=== PATIENT | male | born 1975 | race Caucasian/White ===

== ENCOUNTER 2021-06-29 16:38 | Observation (INO) ==
[2021-06-29] MEDS ORDERED: NALOXONE HCL 0.4 MG/1 ML VIAL/CARP ONE (16:58)
[2021-06-29] MEDS ORDERED: NALOXONE HCL 0.4 MG/1 ML VIAL/CARP IV STA ×3 (17:09→18:35)
[2021-06-29 17:20] LABS: Basophils # (auto) 0.01 K/uL (0-0.2); Basophils % (auto) 0.2 %; Eosinophils # (auto) 0.17 K/uL (0-0.5); Eosinophils % (auto) 4.2 %; Hematocrit (blood only) 47.1 % (42-52); Hemoglobin 15.8 g/dL (14.0-18.0); Immature Granulocytes # (auto) 0.05 K/uL (0.00-0.02); Immature Granulocytes % (auto) 1.2 %; Lymphocytes # (auto) 1.76 K/uL (1.2-3.4); Lymphocytes % (auto) 43.9 %; Mean Corpuscular Hemoglobin 29.6 pg (25-34); Mean Corpuscular Hgb Conc 33.5 g/dL (32-36); Mean Corpuscular Volume 88.4 fL (80-100); Mean Platelet Volume 9.1 fL (7.4-10.4); Monocytes # (auto) 0.08 K/uL (0.11-0.59); Neutrophils # (auto) 1.94 K/uL (1.4-6.5); Neutrophils % (auto) 48.5 %; Platelet Count 284 K/uL (130-400); RDW Coefficient of Variation 13.9 % (11.5-14.5); RDW Standard Deviation 45.2 fL (36.4-46.3); Red Blood Count 5.33 M/uL (4.7-6.1); White Blood Count 4.01 K/uL (4.8-10.8)
--- NOTE | 2021-06-29 17:23 | Emergency Department Note ---
History of Present Illness General Chief complaint: Overdose (Accidental) Stated complaint: OVERDOSE Time Seen by Provider: 06/29/21 16:51 Source: EMS Mode of arrival: EMS Limitations: altered mental status and clinical acuity History of Present Illness Provider complaint: Found cyanotic in the shower Onset (ago): hour(s) Location: head This is a 45-year-old male with a history of seizure disorder sent in from the [facility] for presumed overdose. The patient went to the [facility] yesterday to sign himself in for suicidal ideation. The patient a ppeared to be under the influence of drugs yesterday. He was admitted and at about 2:00 today he went to take a shower and when they checked on him they found him unresponsive and cyanotic and barely breathing. He did have a pulse. His pupils were pinpoint. They later found some pills in his belongings. They called 911 and he received 2.8 mg of Narcan intranasally without effect. An IO was placed in the left humerus and he was given 1.2 mg of Narcan IV. His breathing rate increased and they were less sonorous. A nasal trumpet was placed. No further history is obtainable. Home Medications Medication Instructions Recorded Confirmed Type albuterol sulfate 90 mcg/actuation INHALATION 06/29/21 History aerosol inhaler citalopram 40 mg tablet 40 mg PO DAILY 06/29/21 06/29/21 History clonazepam 0.5 mg tablet 0.5 mg PO DAILY 06/29/21 06/29/21 History gabapentin 300 mg capsule 300 mg PO TID 06/29/21 06/29/21 History mirtazapine 30 mg tablet 30 mg PO DAILY 06/29/21 06/29/21 History prazosin 2 mg capsule 2 mg PO DAILY 06/29/21 06/29/21 History Allergies Allergy/AdvReac Type Severity Reaction Status Date / Time doxepin Allergy Unknown Verified 06/16/09 02:56 haloperidol Allergy Unknown Verified 06/16/09 02:56 mushroom Allergy Unknown PORTABELLA Verified 01/12/08 15:54 trazodone Allergy Unknown Verified 06/16/09 02:56 Past Med/Surg History Medical History Seizure disorder Social History Smoking Status: Unknown if ever smoked Review of Systems See HPI for pertinent positives & negatives. Unobtainable due to reduced consciousness Physical Exam Vital Signs Vital Signs - 24 hr 06/29/21 17:07 06/29/21 17:23 06/29/21 17:58 Pulse Rate 80 67 Pulse Rate [Apical] 56 L Pulse Rhythm [Apical] Regular Pulse Strength [Apical] Normal Respiratory Rate 6 L 20 13 Respiratory Effort / Characteristics Non-Labored Respiratory Depth Shallow Shallow Respiratory Pattern Regular Blood Pressure 123/70 Blood Pressure [Left Arm] 99/75 L Blood Pressure Mean 87 Blood Pressure Mean [Left Arm] 83 Blood Pressure Position [Left Arm] Lying Pulse Oximetry 89 L 97 100 Oxygen Delivery Method Nasal Cannula Nasal Cannula Nasal Cannula Oxygen Flow Rate 0 4 6 Sepsis Recent Fever Within 48 Hours No Sepsis New/Unexplained Change in Mental Status No Sepsis Action Taken by Nursing No Action Required End Tidal CO2 (18-54mmHg) Oxygen Flow Rate - Titration 3 Pulse Oximetry Post Tiitration 99 06/29/21 18:05 06/29/21 19:30 06/29/21 19:32 Pulse Rate Pulse Rate [Apical] 58 L 52 L Pulse Rhythm [Apical] Regular Pulse Strength [Apical] Normal Respiratory Rate 14 12 Respiratory Effort / Characteristics Non-Labored Respiratory Depth Normal Respiratory Pattern Blood Pressure Blood Pressure [Left Arm] 115/70 128/85 Blood Pressure Mean Blood Pressure Mean [Left Arm] 85 99 Blood Pressure Position [Left Arm] Lying Lying Pulse Oximetry 100 98 Oxygen Delivery Method Nasal Cannula Nasal Cannula Oxygen Flow Rate 6 6 Sepsis Recent Fever Within 48 Hours Sepsis New/Unexplained Change in Mental Status Sepsis Action Taken by Nursing End Tidal CO2 (18-54mmHg) 36 Oxygen Flow Rate - Titration Pulse Oximetry Post Tiitration 06/29/21 19:48 06/29/21 20:04 06/29/21 20:19 Pulse Rate Pulse Rate [Apical] 49 L 54 L 52 L Pulse Rhythm [Apical] Regular Regular Regular Pulse Strength [Apical] Normal Normal Normal Respiratory Rate 12 12 12 Respiratory Effort / Characteristics Non-Labored Non-Labored Non-Labored Respiratory Depth Normal Normal Normal Respiratory Pattern Blood Pressure Blood Pressure [Left Arm] 128/85 119/82 119/82 Blood Pressure Mean Blood Pressure Mean [Left Arm] 99 94 94 Blood Pressure Position [Left Arm] Lying Lying Lying Pulse Oximetry 100 100 100 Oxygen Delivery Method Nasal Cannula Nasal Cannula Nasal Cannula Oxygen Flow Rate 6 6 6 Sepsis Recent Fever Within 48 Hours Sepsis New/Unexplained Change in Mental Status Sepsis Action Taken by Nursing End Tidal CO2 (18-54mmHg) 36 Oxygen Flow Rate - Titration Pulse Oximetry Post Tiitration The physical exam is limited due to the patient's condition. Constitutional: Vital signs reviewed. Eyes: Pupils are pinpoint bilaterally. There is bilateral conjunctival injection. HENT: Normocephalic atraumatic. Nasal trumpet is in the right naris. No pooling of secretions in the mouth. Respiratory: Clear to auscultation bilaterally. Breath sounds are equal bilaterally. Breathing only about 8 breaths/min. Cardiovascular: Regular rate and rhythm. No murmurs, rubs or gallops. GI: Soft, nondistended and nontender. Bowel sounds are present. Musculoskeletal: No peripheral edema. I/O line in the left humeral head. Integumentary: No cyanosis. Neurological: The patient is unresponsive. Psychiatric: Unable to assess. Course Administered Medications Discontinued Medications Naloxone HCl 1 mg/ Sodium (Chloride) 1,002.5 mls @ 0 mls/hr IV .Q0M STA Stop: 06/29/21 18:15 Last Admin: 06/29/21 18:42 Dose: Not Given Documented by: [id number] Naloxone HCl 1 mg/ Sodium (Chloride) 1,002.5 mls @ 0 mls/hr IV .Q0M STA Stop: 06/29/21 18:27 Last Admin: 06/29/21 18:42 Dose: Not Given Documented by: [id number] Naloxone HCl (Naloxone Hcl 0.4 Mg/1 Ml Vial/Carp) Confirm Administered Dose 0.4 mg .ROUTE .[facility] Stop: 06/29/21 16:59 Last Admin: 06/29/21 18:02 Dose: Not Given Documented by: [id number] Naloxone HCl (Naloxone Hcl 0.4 Mg/1 Ml Vial/Carp) 0.8 mg IV NOW STA Stop: 06/29/21 17:10 Last Admin: 06/29/21 17:09 Dose: 0.8 mg Documented by: [id number] Naloxone HCl (Naloxone Hcl 0.4 Mg/1 Ml Vial/Carp) 1 mg IV NOW STA Stop: 06/29/21 18:36 Last Admin: 06/29/21 18:28 Dose: 1 mg Documented by: [id number] Naloxone HCl (Naloxone Hcl 0.4 Mg/1 Ml Vial/Carp) 1 mg IV NOW STA Stop: 06/29/21 18:36 Last Admin: 06/29/21 18:13 Dose: 1 mg Documented by: [id number] Critical Care Time Critical Care Time: Yes Total Critical Care Time: 50 I have personally spent approximately 50 minutes of critical care time in the direct management of this patient. This includes bedside care, interpretation of diagnostic studies, and testing, discussion with consultants, patient, and family members, and other required patient management activities. These minutes are in excess of all separately billable procedures. Medical Decision Making Differential Diagnosis Illicit drug use, drug overdose, suicide attempt, mood disorder, opiate addicti on, respiratory failure Medical Records Attestation: I reviewed the patient's medical records. I did perform a limited focused review of portions of the patient's old chart on the electronic medical record. The patient has had no recent pertinent visits to this hospital. Home Medications Current Medication List: was personally reviewed by me Laboratory Data Attestation: I reviewed the patient's lab results. Result diagrams: 06/29/21 17:01 06/29/21 17:01 Lab Results 06/29/21 06/29/21 06/29/21 Range/Units 17:01 17:01 17:01 WBC 4.01 L (4.8-10.8) K/uL RBC 5.33 (4.7-6.1) M/uL Hgb 15.8 (14.0-18.0) g/dL Hct 47.1 (42-52) % MCV 88.4 (80-100) fL MCH 29.6 (25-34) pg MCHC 33.5 (32-36) g/dL RDW Std Deviation 45.2 (36.4-46.3) fL RDW Coeff of Yadi 13.9 (11.5-14.5) % Plt Count 284 (130-400) K/uL MPV 9.1 (7.4-10.4) fL Immature Gran % (Auto) 1.2 % Neut % (Auto) 48.5 % Lymph % (Auto) 43.9 % [place] % (Auto) 2.0 % Eos % (Auto) 4.2 % Baso % (Auto) 0.2 % Neut # (Auto) 1.94 (1.4-6.5) K/uL Lymph # (Auto) 1.76 (1.2-3.4) K/uL [place] # (Auto) 0.08 L (0.11-0.59) K/uL Eos # (Auto) 0.17 (0-0.5) K/uL Baso # (Auto) 0.01 (0-0.2) K/uL Immature Gran # (Auto) 0.05 H (0.00-0.02) K/uL ABG pH (7.35-7.45) ABG pCO2 (35-46) mmHg ABG pO2 (80-95) mmHg ABG HCO3 (19-24) mmol/L ABG O2 Saturation (90-95) % ABG Base Excess (-9-1.8) mEq/L Eriberto Test (Pos) Barometric Pressure mm/Hg Oxygen Given Sodium 136 (136-145) mmol/L Potassium 4.6 (3.5-5.1) mmol/L Chloride 100 (98-107) mmol/L Carbon Dioxide 27 (21-32) mmol/L Anion Gap 9 (3-11) BUN 22 (6-23) mg/dl Creatinine 1.03 (0.6-1.4) mg/dl Est Cr Clr Drug Dosing 91.0 ml/min Est GFR ( Amer) 101.9 ml/min Est GFR (Non-Af Amer) 87.9 ml/min BUN/Creatinine Ratio 21.4 H (10-20) Glucose 205 H (70-99(Fasting)) mg/dl Calcium 9.3 (8.5-10.1) mg/dl Total Bilirubin 0.5 (0.2-1.0) mg/dl AST 33 (13-39) U/L ALT 19 (7-52) U/L Alkaline Phosphatase 79 (34-104) U/L Troponin I 0.03 (0-0.04) ng/ml Total Protein 7.7 (6.0-8.3) gm/dl Albumin 4.7 (3.4-5.0) gm/dl Globulin 3.0 (2.5-4.0) gm/dl Albumin/Globulin Ratio 1.6 (0.9-2) Salicylates < 3.0 L (3.0-30) mg/dl Acetaminophen < 3 L (10-30) ug/ml Ethyl Alcohol mg/dL (<10.0) mg/dl SARS-CoV-2, RNA, NAAT (NEGATIVE) 06/29/21 06/29/21 06/29/21 Range/Units 17:01 18:46 18:55 WBC (4.8-10.8) K/uL RBC (4.7-6.1) M/uL Hgb (14.0-18.0) g/dL Hct (42-52) % MCV (80-100) fL MCH (25-34) pg MCHC (32-36) g/dL RDW Std Deviation (36.4-46.3) fL RDW Coeff of Yadi (11.5-14.5) % Plt Count (130-400) K/uL MPV (7.4-10.4) fL Immature Gran % (Auto) % Neut % (Auto) % Lymph % (Auto) % [place] % (Auto) % Eos % (Auto) % Baso % (Auto) % Neut # (Auto) (1.4-6.5) K/uL Lymph # (Auto) (1.2-3.4) K/uL [place] # (Auto) (0.11-0.59) K/uL Eos # (Auto) (0-0.5) K/uL Baso # (Auto) (0-0.2) K/uL Immature Gran # (Auto) (0.00-0.02) K/uL ABG pH 7.34 L (7.35-7.45) ABG pCO2 55 H (35-46) mmHg ABG pO2 178 H (80-95) mmHg ABG HCO3 28 H (19-24) mmol/L ABG O2 Saturation 99.3 H (90-95) % ABG Base Excess 1.3 (-9-1.8) mEq/L Eriberto Test Pos (Pos) Barometric Pressure 733.4 mm/Hg Oxygen Given 6L Sodium (136-145) mmol/L Potassium (3.5-5.1) mmol/L Chloride (98-107) mmol/L Carbon Dioxide (21-32) mmol/L Anion Gap (3-11) BUN (6-23) mg/dl Creatinine (0.6-1.4) mg/dl Est Cr Clr Drug Dosing ml/min Est GFR ( Amer) ml/min Est GFR (Non-Af Amer) ml/min BUN/Creatinine Ratio (10-20) Glucose (70-99(Fasting)) mg/dl Calcium (8.5-10.1) mg/dl Total Bilirubin (0.2-1.0) mg/dl AST (13-39) U/L ALT (7-52) U/L Alkaline Phosphatase (34-104) U/L Troponin I (0-0.04) ng/ml Total Protein (6.0-8.3) gm/dl Albumin (3.4-5.0) gm/dl Globulin (2.5-4.0) gm/dl Albumin/Globulin Ratio (0.9-2) Salicylates (3.0-30) mg/dl Acetaminophen (10-30) ug/ml Ethyl Alcohol mg/dL < 10.0 (<10.0) mg/dl SARS-CoV-2, RNA, NAAT NEGATIVE (NEGATIVE) Imaging Data Radiologist's Impression: Chest X-Ray 06/29/21 17:09 XR chest 1V portable HISTORY: 45 years-old Male bradypnea acute shortness of breath COMPARISON: None TECHNIQUE: Portable AP view of the chest FINDINGS: Cardiomediastinal and hilar silhouettes are within normal limits. No pneumothorax, pleural effusion, airspace consolidation or overt pulmonary edema. Bones of the chest appear grossly intact. Partially imaged surgical anchor projects over the proximal left humerus. IMPRESSION: No acute process. ACT 112: Negative or not required by law. The above report was generated using voice recognition software. It may contain grammatical, syntax or spelling errors. Electronically signed by: Alton Kaminski M.D. 06/29/2021 5:[address] 06/29/21 17:10 CT head/brain wo con CLINICAL HISTORY: 45 years-old Male with AMS. Acutely altered mental status TECHNIQUE: Multiple axial CT images of the head were obtained without contrast. A dose lowering technique was utilized adhering to the principles of ALARA. CT DOSE: 1311.06 mGy.cm COMPARISON: Head CT 05/28/2008, 01/11/2008 FINDINGS: No acute intracranial hemorrhage, midline shift, intracranial mass, territorial ischemia or abnormal extra-axial collection. There is persistent dilation lateral ventricles measuring up to 4.1 cm transversely, stable back to at least 2007. Study is mildly motion degraded. The calvarium is intact. Mild mucosal thickening of the ethmoid air cells and frontal sinuses and mastoid air cells are clear. Unremarkable soft tissues and orbits. IMPRESSION: 1. No acute intracranial abnormality. 2. Unchanged ventricular prominence is stable dating back to at least 2007. ACT 112: Negative or not required by law. The above report was generated using voice recognition software. It may contain grammatical, syntax or spelling errors. Electronically signed by: Alton Kaminski M.D. 06/29/2021 5:59 PM MDM Narrative I did evaluate the patient as noted above. The patient was sent over from the [facility] for presumed opiate overdose. He did receive 2 mg of Narcan prior to arrival. He does have pinpoint pupils here. He is only bringing about 6 to 8 breaths/min with an O2 sat of 89% on room air. He was placed on supplemental oxygen. He was placed on an end-tidal CO2 monitor. He was placed on one-to-one suicide watch. IV access was established. I did treat him with 0.8 mg of Narcan IV. The patient woke up. He started talking but was unintelligible. His respiratory rate came up to 16. I did place an order for continuous cardiac monitoring. The monitor showed normal sinus rhythm at a rate of 80 bpm. I did order and personally review the patient's 12-lead EKG as described above. I did order and personally reviewed the images of the patient's chest x-ray as described above. There is no evidence of acute process. I did order a urine analysis. I did order and review the patient's blood work as noted in the electronic medical record. ABG shows a pH of 7.27. PaCO2 is 59 and PaO2 is 87. CBC shows a white count of 4. He is not anemic or thrombocytopenic. Electrolytes and LFTs are unremarkable. Troponin is negative. Tox screen for salicylates, alcohol and acetaminophen are negative. I did order a CT of the head. I did review the images myself as well as the radiology report as described above. There is no evidence of acute intracranial abnormality. The [facility] called and they were able to identify the pills of his Klonopin 1 mg tablets. There were 25 and bottle. The patient developed bradypnea again with a respiratory rate down to 10 and so he was given 1 mg of Narcan IV. He did open his eyes and his respiratory rate went up to 16. He still is unable to answer questions other than saying that he is cold. He was given warm blankets. On reassessment the patient was again rather somnolent. He was given another 1 mg of Narcan IV. The patient was able to wake up enough to say he wanted to leave but not much more than that. He is still rather confused and falls right back asleep. Repeat ABG shows a pH of 7.34. A PaCO2 of 55 and a PaO2 of 178. His oxygen was titrated down. I did discuss the case with the hospitalist and director of casework services. The ICU was consulted and he was admitted to the ICU. Impression & Plan Acute respiratory failure, Drug overdose, Leukopenia Discharge Plan Visit Data Chief Complaint: Overdose (Accidental) Stated Complaint: OVERDOSE ED Provider: Akbar Hong Discharge Problem: Acute respiratory failure, Drug overdose, Leukopenia Patient Disposition: Admitted As Inpatient Forms Stand Alone Forms: My [facility] Prescriptions Prescriptions: No Action citalopram 40 mg tablet 40 mg PO DAILY RF: 0 clonazepam 0.5 mg tablet 0.5 mg PO DAILY RF: 0 mirtazapine 30 mg tablet 30 mg PO DAILY RF: 0 gabapentin 300 mg capsule 300 mg PO TID RF: 0 albuterol sulfate 90 mcg/actuation HFA aerosol inhaler INHALATION RF: 0 prazosin 2 mg capsule 2 mg PO DAILY RF: 0 Referrals Referrals: Belinda Cervantes [Primary Care Provider] -
[2021-06-29 17:36] LABS: Albumin Globulin Ratio 1.6 (0.9-2); Albumin Level 4.7 gm/dl (3.4-5.0); BUN Creatinine Ratio 21.4 (10-20); Bilirubin,Total 0.5 mg/dl (0.2-1.0); Calcium 9.3 mg/dl (8.5-10.1); Est GFR (African American) 101.9 ml/min; Est GFR (Non-African American) 87.9 ml/min; Potassium 4.6 mmol/L (3.5-5.1); Total Protein 7.7 gm/dl (6.0-8.3)
[2021-06-29 17:37] LABS: Troponin I 0.03 ng/ml (0-0.04)
[2021-06-29 17:39] LABS: Acetaminophen < 3 ug/ml (10-30); Salicylate < 3.0 mg/dl (3.0-30)
--- NOTE | 2021-06-29 18:00 | CT Scan Report ---
CT head/brain wo con CLINICAL HISTORY: 45 years-old Male with AMS. Acutely altered mental status TECHNIQUE: Multiple axial CT images of the head were obtained without contrast. A dose lowering tech nique was utilized adhering to the principles of ALARA. CT DOSE: 1311.06 mGy.cm COMPARISON: Head CT 05/28/2008, 01/11/2008 FINDINGS: No acute intracranial hemorrhage, midline shift, intracranial mass, territorial ischemia or abnormal extra-axial collection. There is persistent dilation lateral ventricles measuring up to 4.1 cm transv ersely, stable back to at least 2007. Study is mildly motion degraded. The calvarium is intact. Mild mucosal thickening of the ethmoid air cells and frontal sinuses and ma stoid air cells are clear. Unremarkable soft tissues and orbits. IMPRESSION: 1. No acute intracranial abnormality. 2. Unchanged ventricular prominence is stable dating back to at least 2007. ACT 112: Negative or not required by law. The above report was generated using voice recognition software. It may contain grammatical, syntax o r spelling errors. Electronically signed by: Alton Kaminski M.D. 06/29/2021 5:59 PM
[2021-06-29] MEDS ORDERED: NALOXONE HCL 1 MG in SODIUM CHLORIDE 0.9% 1000ML 1,000 ML IV STA ×2 (18:14→18:26)
[2021-06-29 19:04] LABS: Base Excess ABG 1.3 mEq/L (-9-1.8); HCO3 ABG 28 mmol/L (19-24); Oxygen Saturation ABG 99.3 % (90-95); PCO2 ABG 55 mmHg (35-46); PO2 ABG 178 mmHg (80-95); pH ABG 7.34 (7.35-7.45)
[2021-06-29 19:06] LABS: Allen Test Pos (Pos)
--- NOTE | 2021-06-29 19:44 | History & Physical Report ---
Date of Service June 29, 2021 Assessment & Plan (1) Drug overdose: (2) Acute respiratory failure: Plan: Patient is 45 y/o M with PMH seizure disorder, h/o TBI, asthma, depression presented to ER from the [facility] for reported unresponsive episode. It is reported patient self checked in yesterday for suicidal ideations and was noted to have episodes of "nodding off" throughout the day. Today around 15:00 found in shower cyanotic, unresponsive and with reported pinpoint pupils. It isreported that patient was given 2.8mg narcan intranasally as well as 1.2mg though IO prior to hospital arrival. Pills were found in a bag of patient's possession. Upon ER arrival it is reported patient was had respirations of 6 to 8 breaths/min and O2 sat of 89% on room air, was given 0.8 mg of Narcan and reportedly woke up and was talking but was intelligible and had improvement of his respirations up to 16. Is reported patient had bradypnea again and was given additional Narcan with reporting becoming more responsive and opening his eyes to questioning. CT head no acute findings. CXR: no acute findings ABG: pH: 7.34, pCO2: 55, pO2: 178, HCO3: 28, was obtained on 6L oxygen. Negative ETOH, acetaminophen, salicylate levels Rx meds filled at [facility] on 06/20/2021 citalopram 40 mg quantity 30, clonazepam 0.5 mg quantity 30, gabapentin 300 mg quantity 90, mirtazapine 30 mg quantity 30, prazosin 2 mg quantity 30 Suspect overdose, possible opioid and benzo. Less likely seizure and postictal state Currently pt arousable Monitor in ICU Obtain urine drug screen Seizure precautions Suicide precautions (3) Seizure disorder: Plan: Reported history seizure disorder and reported last seizure in 2019 Lower suspicion for acute seizure and postictal status however if would pt would no improve in status from above or declines, pt will require transfer for continuous EMG monitoring (4) Depression: Plan: Pharmacy record review patient is to be on citalopram, clonazepam (5) Asthma: Plan: Albuterol prn Disposition ICU Follows with [facility] in [place] for routine care Pt was seen and care coordinated with Dr Gamboa. See addendum History of Present Illness Chief Complaint: unresponsive Primary Care Provider: Belinda Cervantes Patient is 45 y/o M with PMH seizure disorder, h/o TBI, asthma, depression presented to ER from the [facility] for reported unresponsive episode. History unobtainable from patient. It is reported patient self checked in yesterday for suicidal ideations. Reported thinks patient was "impaired" yesterday, however unable to further elaborate. Patient did not have a drug screen at the facility. Spoke to a nurse who was not immediately taking care of patient, however he did notice patient walking through [place] today and did notice him to seem to be nodding off a couple of times. Today patient was taking a shower and around 1500 was found on floor cyanotic, unresponsive and with reported pinpoint pupils. This nurse was unable to give me any further details about the event and reports no daytime staff available at this time. States that staff found pills in a bag and this nurse was unsure the number of pills in the bag and states the pills were not identified. Nurse reports that patient has been known to smuggle drugs in to other rehab facilities in past. No known seizure witnessed. Staff report patient stated last seizure was in 2019. ER provider reported that patient was given 2.8mg narcan intranasally as well as 1.2mg though IO prior to hospital arrival. Patient reported to [facility] staff that he was on albuterol, Celexa, prazosin, gabapentin, Klonopin, Remeron and did not give specific doses Upon review of recently Rx meds, filled at [facility] on 06/20/2021 citalopram 40 mg quantity 30, clonazepam 0.5 mg quantity 30, gabapentin 300 mg quantity 90, mirtazapine 30 mg quantity 30, prazosin 2 mg quantity 30 Upon ER arrival it is reported patient was had respirations of 6 to 8 breaths/min and O2 sat of 89% on room air, was given 0.8 mg of Narcan and reportedly woke up and was talking but was intelligible and had improvement of his respirations up to 16. Is reported patient had bradypnea again and was given additional Narcan with reporting becoming more responsive and opening his eyes to questioning. CT head no acute findings. unable to obtain further medical history, surgical history, social history, family history from patient at this time secondary to cognitive status Allergies Allergy/AdvReac Type Severity Reaction Status Date / Time doxepin Allergy Unknown Unknown Verified 06/29/21 21:14 haloperidol Allergy Unknown Unknown Verified 06/29/21 21:14 mushroom Allergy Unknown PORTABELLA Verified 01/12/08 15:54 trazodone Allergy Unknown Unknown Verified 06/29/21 21:14 Home Medications Medication Instructions Recorded Confirmed Type albuterol sulfate 90 mcg/actuation 2 puff INHALATION QID PRN 06/29/21 06/29/21 History aerosol inhaler citalopram 40 mg tablet 40 mg PO DAILY 06/29/21 06/29/21 History clonazepam 0.5 mg tablet 0.5 mg PO DAILY 06/29/21 06/29/21 History gabapentin 300 mg capsule 300 mg PO TID 06/29/21 06/29/21 History mirtazapine 30 mg tablet 30 mg PO DAILY 06/29/21 06/29/21 History prazosin 2 mg capsule 2 mg PO DAILY 06/29/21 06/29/21 History Past Med/Surg History Medical History Asthma Depression Seizure disorder Social History Smoking Status: Smoker, status unknown Hx Alcohol Use: No Preferred Language: Mauritanian Communication Ability: Impaired Box Stapler Required: No Beliefs That Will Affect Care: None Current Living Situation: Spouse Other Information That Helps Us Care for You: No Feels Safe at Home: Yes Review of Systems Review of Systems: Unobtainable due to cognitive status Physical Exam Physical Exam: General: no acute distress, WDWN Head: normocephalic, atraumatic Eyes: pupils approximately 2-3mm and reactive to light, uncooperative with EOM testing, conjunctiva non-injected, anicteric ENT: normal inspection external ears, nose, mucous membranes moist Neck: supple, trachea midline Lungs: no respiratory distress, respirations 12, +wheezing CV: RRR, no murmur, no pretibial edema Abd: normal BS, soft, non-tender Ext: no cyanosis, no noted calf tenderness Neuro: drowsy, arousable to voice and light touch, mumbles few words, able to follow simple commands then falls back asleep. Will not state what he took and mumbles something when asked Skin: warm, dry, multiple tattoos Results & Data Results & Data ([facility]) Vital Signs (Past 12 Hours) Vital Signs Pulse Pulse Resp BP BP Pulse Ox 06/29/21 19:30 52 L 12 128/85 98 06/29/21 18:05 58 L 14 115/70 100 06/29/21 17:58 56 L 13 99/75 L 100 06/29/21 17:23 67 20 97 06/29/21 17:07 80 6 L 123/70 89 L Laboratory Results Short CBC 06/29/21 Range/Units 17:01 WBC 4.01 L (4.8-10.8) K/uL Hgb 15.8 (14.0-18.0) g/dL Hct 47.1 (42-52) % Plt Count 284 (130-400) K/uL BMP 06/29/21 17:01 Sodium 136 Potassium 4.6 Chloride 100 Carbon Dioxide 27 BUN 22 Creatinine 1.03 Glucose 205 H Calcium 9.3 Cardiac Enzymes 06/29/21 Range/Units 17:01 Troponin I 0.03 (0-0.04) ng/ml Liver Function 06/29/21 Range/Units 17:01 Total Bilirubin 0.5 (0.2-1.0) mg/dl AST 33 (13-39) U/L ALT 19 (7-52) U/L Alkaline Phosphatase 79 (34-104) U/L Albumin 4.7 (3.4-5.0) gm/dl Diagnostic Findings Chest X-Ray 06/29/21 17:09 XR chest 1V portable HISTORY: 45 years-old Male bradypnea acute shortness of breath COMPARISON: None TECHNIQUE: Portable AP view of the chest FINDINGS: Cardiomediastinal and hilar silhouettes are within normal limits. No pneumothorax, pleural effusion, airspace consolidation or overt pulmonary edema. Bones of the chest appear grossly intact. Partially imaged surgical anchor projects over the proximal left humerus. IMPRESSION: No acute process. ACT 112: Negative or not required by law. The above report was generated using voice recognition software. It may contain grammatical, syntax or spelling errors. Electronically signed by: Alton Kaminski M.D. 06/29/2021 5:[address] 06/29/21 17:10 CT head/brain wo con CLINICAL HISTORY: 45 years-old Male with AMS. Acutely altered mental status TECHNIQUE: Multiple axial CT images of the head were obtained without contrast. A dose lowering technique was utilized adhering to the principles of ALARA. CT DOSE: 1311.06 mGy.cm COMPARISON: Head CT 05/28/2008, 01/11/2008 FINDINGS: No acute intracranial hemorrhage, midline shift, intracranial mass, territorial ischemia or abnormal extra-axial collection. There is persistent dilation lateral ventricles measuring up to 4.1 cm transversely, stable back to at least 2007. Study is mildly motion degraded. The calvarium is intact. Mild mucosal thickening of the ethmoid air cells and frontal sinuses and mastoid air cells are clear. Unremarkable soft tissues and orbits. IMPRESSION: 1. No acute intracranial abnormality. 2. Unchanged ventricular prominence is stable dating back to at least 2007. ACT 112: Negative or not required by law. The above report was generated using voice recognition software. It may contain grammatical, syntax or spelling errors. Electronically signed by: Alton Kaminski M.D. 06/29/2021 5:59 PM Supervising Physician Co-Signing Physician Notes Patient is a 45 year old male with history of TBI, seizure disorder, depression, asthma who who presented to the ED from [facility] for reported unresponsive episode. Patient checked in for suicidal ideation and was later found in the bathroom cyanotic and unresponsive with pinpoint pupil. He was given narcan 2.8 mg intranasal + 1.2 mg through IO prior to ED arrival. In the ED, he had bradypnea 6-8/min with saturation of 89% on room air and was given multiple dose of narcan with improvement of his bradypnea and mental status. During my encounter, vitals were stable. Patient was sleeping but arousable to verbal stimuli. He would briefly answer simple questions and would go back to sleep. History unattainable from patient. Per report, the facility staff found klonopin bottle. Labs unremarkable. Urine toxicology screen positive for amphetamine, ecstasy, benzo and marijuana. Being admitted to ICU for closer monitoring. Might need intubation for airway protection if decompensates but currently stable. Supportive care for now. NPO status until mental status improves. Psych evaluation. I personally reviewed the record. I interviewed and examined the patient at bedside. Patient's care is coordinated with Shaina Steel PA-C . Please refer to the documentation above for details of patient's presentation and for discussion of other issues. (1) Acute respiratory failure Respiratory failure complication: hypoxia and hypercapnia Qualified Code(s): J96.01 - Acute respiratory failure with hypoxia; J96.02 - Acute respiratory failure with hypercapnia (2) Drug overdose Encounter type: initial encounter Injury intent: undetermined intent Qualified Code(s): T50.904A - Poisoning by unspecified drugs, medicaments and biological substances, undetermined, initial encounter
[2021-06-29] MEDS ORDERED: ICU PROTOCOL FOR HYPERGLYCEMIA PRN ×2 (21:49→21:57)
[2021-06-29] MEDS ORDERED: NALOXONE HCL 0.4 MG/1 ML VIAL/CARP IV PRN ×2 (22:03→23:02)
[2021-06-29] MEDS ORDERED: ALBUTEROL HFA 8 GM INHALER INH PRN (22:06)
--- NOTE | 2021-06-29 22:08 | Critical Care Consultation ---
Date of Consultation June 29, 2021 Assessment & Plan (1) Admitted to intensive care unit: Reason Critically Ill: 45-year-old male presenting in acute hypoxic respiratory failure in the setting of substance overdose requiring close airway monitoring as well as likely need for chemical intervention for suspected overdose with responsiveness to Narcan. NEURO - * Unresponsive: * Patient found down in the shower. He had pinpoint pupils and was cyanotic. He was hypoxic initially. Has responded escalating doses of Narcan. * On assessment, he is saturating well on 6 L, however this was easily titrated down. His ABG shows adequate oxygenation. * CT head found to be unremarkable without acute signs of trauma. * When patient is awoken, he does provide more history. * Likely all secondary from substance overdose. * Of note, the patient did become increasingly somnolent and with bradypnea shortly after arrival in the ICU. Patient received 0.4 mg of IV Narcan. Patient had near immediate response. After administration of Narcan, the patient was awake, alert, and oriented. He was able to provide historical information. He states that he did present to the [facility] as he was having suicidal ideation secondary to multiple stressors in his life including his relationship with his . He states that he used "street dope" as well as his prescribed Klonopin in an attempt to overdose. He does report that he took these medications in an attempt to end his life. He does become increasingly tearful and is concerned that he will be arrested secondary to street drug use. He reports that he did have a prior history of intravenous drug abuse with his last active use approximately 6 months ago. After receiving Narcan, the patient was able to provide urine sample and actually able to stand at bedside and use urinal as he had refused catheterization. Throughout conversation, the patient did notably become increasingly somnolent. At this point, decision was made to place patient on Narcan drip. I am concerned with providing increasing spot doses of Narcan in the setting of his seizure disorder with risk of inducing possible breakthrough seizure activity. Certainly, this is likely polysubstance overdose particularly in a patient with access to benzodiazepines. At this point, the patient is oxygenating well on 2 L nasal cannula. Patient does awaken easily and is able to continue to answer questions. We will continue with Narcan drip currently. * Suicide attempt: * Patient made a one-to-one with suicide precautions in place. * Did reach out to [facility] [address] and make them aware of the patient in the event that he continues to clear throughout the night. * Patient will likely require inpatient hospitalization given his active suicidal ideation with attempt. * Given the patient's admission of suicide attempt while lucid, will fill out 302 paperwork and file in patient's chart. Plan for psych consult when more appropriate. CARDIAC/VASCULAR - * No history of cardiac disease. * While patient was lucid, he is adamant that he did not overdose on his psychiatric medications. His QTC has been appropriate. * EKG: Normal sinus rhythm at [address] or T wave changes noted. QTc 461 ms. * Will repeat EKG later night for monitoring. * Monitor on telemetry. RESPIRATORY - * Respiratory failure: * Likely secondary to respiratory depressant drug overdose. * Has responded to Narcan. * Continue with supplemental oxygen as needed. * Chest x-ray without acute findings. Patient endorses no vomiting with today's events. * Patient has significant wheezing on exam. Reports history of asthma as well as cigarette smoking. * Albuterol inhaler as needed. GI/NUTRITION - * Will make n.p.o. pending improvement in mental status. RENAL/LYTES - * No significant electrolyte derangements * IVF: NSS@100 mL/hr - * Patient was able to void on his own. * Straight cath if needed. ENDO - * No h/o DM or thyroid Dz * BSGs per unit protocol. ISS --> gtt per unit policy. HEME - * Stable H&H ID - * No concerns for infectious contribution at this time. LINES/IV ACCESS - * PIVs x1 * RIGHT Forearm Endurance Catheter * LEFT Humeral IO - Removed DVT PROPHYLAXIS - * SCDs I have personally spent 55 minutes of critical care time in the direct management of this patient. This is a life/limb threatening event. This includes time spent evaluating patient, direct bedside care, chart review, placing orders, interpretation of diagnostic studies, discussion with consultants, patient, and family members, as well as other required patient management activities. This time is exclusive of all separately billable procedures, and teaching time and separate from and in addition to any other critical care service time. Thank you for allowing us to participate in the care of this patient. Please refer to my attending physician's documentation for any further recommendations. (2) Drug overdose: (3) Acute respiratory failure: (4) Suicidal ideation: (5) Depression: (6) Asthma: (7) Seizure disorder: Supervising Physician Co-Signing Physician Notes Patient seen and examined. EMR reviewed. Discussed with critical care AVERY. Agree with assessment plan as noted. Please refer to my progress note from for additional details History of Present Illness Attending Physician: Tim Gamboa MD History of Present Illness Patient is a 45-year-old male with a significant past medical history of depression, anxiety, TBI, seizure disorder, and asthma. Per conversation with colleagues and documentation review, the patient admitted himself to the [facility] yesterday with suicidal ideation. Per reports, the patient was noted to be "impaired" yesterday. Today while taking a shower, the patient was checked on by staff and found unresponsive. Patient was noted to be cyanotic and with pinpoint pupils. The patient was administered aggressive doses of Narcan with modest improvement. Upon EMS arrival, LEFT humeral head IO was placed and patient received an additional dose of Narcan. Upon arrival to the emergency department, the patient was somnolent with saturations of 89% on room air. He was given additional dose of Narcan with modest improvement of mental status and respiratory rate as well as oxygenation. CT of the head was obtained which demonstrated no acute findings. Patient had shown improvement with each subsequent doses of Narcan. Patient is currently prescribed albuterol, citalopram, clonazepam, gabapentin, mirtazapine, and prazosin. Apparently, the patient was also found with a baggy of unlabeled medications while in the shower. Upon evaluation in the emergency department, the patient is somnolent. He will awaken with noxious stimuli. He does become somewhat agitated when awoken. He does not provide great historical information otherwise. He does complain of some pain to the LEFT shoulder at the site of the IO. Otherwise, he offers no complaints of pain. Allergies Allergy/AdvReac Type Severity Reaction Status Date / Time doxepin Allergy Unknown Unknown Verified 06/29/21 21:14 haloperidol Allergy Unknown Unknown Verified 06/29/21 21:14 mushroom Allergy Unknown PORTABELLA Verified 01/12/08 15:54 trazodone Allergy Unknown Unknown Verified 06/29/21 21:14 Home Medications Medication Instructions Recorded Confirmed Type albuterol sulfate 90 mcg/actuation 2 puff INHALATION QID PRN 06/29/21 06/29/21 History aerosol inhaler citalopram 40 mg tablet 40 mg PO DAILY 06/29/21 06/29/21 History clonazepam 0.5 mg tablet 0.5 mg PO DAILY 06/29/21 06/29/21 History gabapentin 300 mg capsule 300 mg PO TID 06/29/21 06/29/21 History mirtazapine 30 mg tablet 30 mg PO DAILY 06/29/21 06/29/21 History prazosin 2 mg capsule 2 mg PO DAILY 06/29/21 06/29/21 History Patient History Medical History Asthma Depression Seizure disorder Social History Smoking Status: Smoker, status unknown Hx Alcohol Use: No Preferred Language: [place] Communication Ability: Impaired Elevator Repairer Required: No Beliefs That Will Affect Care: None Current Living Situation: Spouse Other Information That Helps Us Care for You: No Feels Safe at Home: Yes Review of Systems Review of Systems: Unobtainable due to cognitive status Physical Exam Physical Exam: VITAL SIGNS - Vital signs and nursing notes were reviewed. GENERAL - 45-year-old male appearing his stated age who is somnolent. Arousable to noxious stimuli. HEAD - Normocephalic, Atraumatic. No Gross's Sign or Raccoon's Eyes. EYES - Pupils small and equal bilaterally. EARS - No deformities of external structures noted on gross examination bilaterally. NOSE - Midline and without cyanosis. No epistaxis or purulent drainage noted. MOUTH/OROPHARYNX - Without perioral cyanosis. Buccal mucosa pink and dry. Dentures in place. NECK - Neck with FROM. Supple to palpation. No lymphadenopathy noted. No nuchal rigidity. LUNGS - Chest wall symmetric without accessory muscle use, intercostals retractions, or central cyanosis. Normal vesicular breath sounds CTA B/L. Diffuse wheezes noted throughout. CARDIAC - RRR with S1/S2. No murmur, rubs, or gallops appreciated. ABDOMEN - Abdominal contour flat without pulsations or visible masses. BS normoactive all four quadrants. No tenderness, palpable masses, hepatosplenomegaly, or ascites noted. EXTREMITIES - No pretibial edema present. +3/5 radial and dorsalis pedis pulses palpated throughout. +5/5 strength noted in UE/LE bilaterally. NEUROLOGIC - Cranial nerves II through XII grossly intact. Somnolent but arouses to noxious stimuli. PSYCH - Unable to obtain detailed psychiatric assessment secondary to level of sedation. Results & Data Results & Data ([facility]) Vital Signs (Past 12 Hours) Vital Signs Pulse Pulse Resp BP BP Pulse Ox 06/29/21 21:20 54 L 12 116/71 94 06/29/21 21:10 58 L 14 116/71 97 06/29/21 20:53 52 L 10 L 105/82 99 06/29/21 20:19 52 L 12 119/82 100 06/29/21 20:04 54 L 12 119/82 100 06/29/21 19:48 49 L 12 128/85 100 06/29/21 19:30 52 L 12 128/85 98 06/29/21 18:05 58 L 14 115/70 100 06/29/21 17:58 56 L 13 99/75 L 100 06/29/21 17:23 67 20 97 06/29/21 17:07 80 6 L 123/70 89 L Coding Level of Care Code Critical Care 1st 30-74 mins Diagnoses Admitted to intensive care unit Z78.9 Drug overdose T50.904A Encounter type: initial encounter Injury intent: undetermined intent Acute respiratory failure J96.01; J96.02 Respiratory failure complication: hypoxia and hypercapnia Suicidal ideation R45.851 Depression F32.A Asthma J45.909 Seizure disorder G40.909 Time Spent (min) 55 (1) Acute respiratory failure Respiratory failure complication: hypoxia and hypercapnia Qualified Code(s): J96.01 - Acute respiratory failure with hypoxia; J96.02 - Acute respiratory failure with hypercapnia (2) Drug overdose Encounter type: initial encounter Injury intent: undetermined intent Qualified Code(s): T50.904A - Poisoning by unspecified drugs, medicaments and biological substances, undetermined, initial encounter
[2021-06-29] MEDS: SODIUM CHLORIDE 0.9% 1000ML 1,000 ML IV SCH (22:57)
[2021-06-29 23:26] LABS: Appearance Urine Clear (Clear); Bacteria Urine Automated Negative (Negative); Bilirubin Urine Negative (Negative); Blood Urine Negative (Negative); Color Urine Yellow; Epithelial Cell Urine Auto >30 /lpf (0-5); Glucose Urine UA 2+ (Negative); Ketones Urine Negative (Negative); Leukocyte Esterase Urine Negative (Negative); Nitrite Urine Negative (Negative); Protein Urine 1+ (Negative); RBC Urine Automated 0-4 /hpf (0-4); Specific Gravity Urine 1.021 (1.000-1.030); Urobilinogen Urine Negative (Negative); pH Urine 5.5 (4.5-7.5)
[2021-06-29] MEDS ORDERED: NALOXONE HCL 5 MG in 0.9 % SODIUM CHLORIDE 87.5 ML IV SCH (23:30)
[2021-06-29] MEDS ORDERED: STAT IV Infusion **Titration per Protocol STA (23:30)
[2021-06-29] MEDS ORDERED: NALOXONE HCL 0.4 MG/1 ML VIAL/CARP IV ONE (23:45)
[2021-06-29 23:51] LABS: Cast Urine Automated 0 /lpf (0-5); Mucus Urine Present (None Prsent); Sperm Urine Present (None Prsent)
[2021-06-29 23:52] LABS: Amphetamines+Metham, Urine Pos (Neg); Barbiturates, Urine Neg (Neg); Benzodiazepine, Urine Pos (Neg); Cocaine, Urine Neg (Neg); MDMA (Ecstacy), Urine Pos (Neg); Methadone, Urine Neg (Neg); Opiate, Urine Neg (Neg); Phencyclidine, Urine Neg (Neg)
--- NOTE | 2021-06-30 00:37 | Procedure Note ---
Procedure Note Date of Service June 30, 2021 Note Procedure: Area Operations Manager Indwelling Peripherally Inserted IV Catheter Placement Attending: Dr. Culp APC: Baldemar Norman PA-C Indication: Need for IV Access, Poor Vascular Access Anesthesia: None Verbal consent was obtained from patient prior to performing the procedure. A time-out was completed verifying correct patient, procedure, site, positioning, and implant(s) or special equipment if applicable. Utilizing bedside ultrasound, vascularity of the RIGHT upper extremity was assessed. Vessel size was noted for appropriate catheter selection and skin was marked with gentle pressure. Patients RIGHT upper extremity was prepped and draped in the usual sterile fashion utilizing chlorhexidine. Ultrasound guidance was used to aid needle placement. A 22 g Endurance Catheter was introduced into the RIGHT forearm vein under direct ultrasound guidance. Guide wire was easily deployed without resistance. Catheter was threaded over the guide wire without resistance and the entire apparatus was removed intact. Good venous blood return was noted in the catheter. The IV catheter was easily flushed with sterile saline flush. Sterile clave was attached to the end of the catheter and good blood return was again noted. Tourniquet was released. StatLock device and sterile dressing were applied. The patient tolerated the procedure well. Blood Loss: Minimal Complications: None Procedural Ultrasound Guidance: Procedure Date: 06/30/2021 Indication: Poor Vascular Access Attending: Dr. Culp APC: Baldemar Norman PA-C Artery/Veins Identified: YES Access confirmed in Vein with ultrasound: YES Complications: NONE Patient tolerated procedure: WELL Coding CPT Codes Tubes, Drains, and Vasc Access - Tubes, Drains, and Vasc Access: [id number] Venipuncture, Age 4/>Req phys skill, (sep proc), Dx/Tx (not rtn) ([id number]) [facility] Procedure Codes (Charges) Tubes, Drains, and Vasc Access Procedure 1: Tubes, Drains, and Vasc Access: [id number] Venipuncture, Age 4/>Req phys skill, (sep proc), Dx/Tx (not rtn)
[2021-06-30 05:25] LABS: Basophils # (auto) 0.01 K/uL (0-0.2); Basophils % (auto) 0.1 %; Eosinophils # (auto) 0.25 K/uL (0-0.5); Eosinophils % (auto) 3.2 %; Hematocrit (blood only) 39.9 % (42-52); Hemoglobin 13.2 g/dL (14.0-18.0); Immature Granulocytes # (auto) 0.03 K/uL (0.00-0.02); Immature Granulocytes % (auto) 0.4 %; Lymphocytes # (auto) 2.49 K/uL (1.2-3.4); Lymphocytes % (auto) 32.1 %; Mean Corpuscular Hemoglobin 29.4 pg (25-34); Mean Corpuscular Hgb Conc 33.1 g/dL (32-36); Mean Corpuscular Volume 88.9 fL (80-100); Mean Platelet Volume 8.9 fL (7.4-10.4); Monocytes # (auto) 0.44 K/uL (0.11-0.59); Monocytes % (auto) 5.7 %; Neutrophils # (auto) 4.54 K/uL (1.4-6.5); Neutrophils % (auto) 58.5 %; Platelet Count 254 K/uL (130-400); RDW Coefficient of Variation 14.1 % (11.5-14.5); RDW Standard Deviation 46.5 fL (36.4-46.3); Red Blood Count 4.49 M/uL (4.7-6.1); White Blood Count 7.76 K/uL (4.8-10.8)
[2021-06-30 05:51] LABS: BUN Creatinine Ratio 30.5 (10-20); Calcium 8.2 mg/dl (8.5-10.1); Creatinine Clr Calc Pharmacy 159.8 ml/min; Est GFR (African American) 142.7 ml/min; Est GFR (Non-African American) 123.1 ml/min; Phosphorus 3.2 mg/dl (2.5-4.9); Potassium 3.8 mmol/L (3.5-5.1)
--- NOTE | 2021-06-30 08:11 | Critical Care Progress Note ---
Date of Service June 30, 2021 Assessment & Plan (1) Admitted to intensive care unit: Plan: Impression: 45-year-old male admitted with suicidal ideation and overdose requiring continuous Narcan infusion. Recommendations: 1. Overdose: Continue supportive management. QTc acceptable. We will try and wean Narcan to off. Decrease to 0.2 mg now and if does okay over the next 2 hours, can discontinue the drip. Once he is off the drip, he can transfer out of the intensive care unit. 2. Asthma: Some wheezing this morning. Will provide DuoNeb treatment. Start Flovent in conjunction with albuterol. Smoking cessation recommended. 3. Hypercarbia: Secondary to respiratory depressant effect of intentional overdose. Continue supportive management. No indication for noninvasive positive pressure ventilation currently. 4. Increase activity and advance diet as tolerated. As the patient is going to be ambulatory, do not think DVT prophylaxis is needed currently. No indication for GI prophylaxis. Once the patient's Narcan drip is discontinued, he can transfer out of the ICU and back to the hospitalist service. Plan was discussed with the patient as well as with ICU nurse at bedside. Questions were answered to the best of my ability. They expressed understanding and are in agreement with plan as outlined (2) Suicidal ideation: (3) Asthma: (4) Seizure disorder: (5) Drug overdose: Admission and Anticipated Discharge Date Admission Date: June 29, 2021 Subjective Patient seen and examined. EMR reviewed. Discussed with critical care AVERY. Review of Systems Review of Systems: All systems reviewed & are unremarkable except as noted in Subjective Physical Exam Constitutional: WD/WN, vitals as above Neck: trachea midline, no thyromegaly Respiratory: normal respiratory effort; no respiratory distress, no labored breathing and not tachypneic Auscultation: + wheezes; no crackles Cardiovascular: RRR, no murmur, no edema Gastrointestinal (Abdomen): normal bowel sounds, soft, nontender, no hepatosplenomegaly Musculoskeletal: Extremities: extremities normal to inspection Skin: no rashes, warm and dry Neurologic: Nonfocal exam Lymphatic: no cervical lymphadenopathy Results & Data Results & Data ([facility]) Vital Signs (Past 12 Hours) Vital Signs Temp Pulse Pulse Resp BP BP Pulse Ox 06/30/21 07:30 56 L 13 114/79 97 06/30/21 07:00 64 13 128/79 97 06/30/21 05:30 56 L 10 L 118/80 99 06/30/21 05:00 60 9 L 132/89 99 06/30/21 04:30 37 C 60 11 L 104/85 100 06/30/21 04:00 63 12 120/80 98 06/30/21 03:30 58 L 10 L 132/86 100 06/30/21 03:00 51 L 6 L 120/86 99 06/30/21 02:30 52 L 12 126/90 100 06/30/21 02:00 56 L 12 133/88 99 06/30/21 01:30 65 12 131/85 98 06/30/21 01:00 60 11 L 130/85 99 06/30/21 00:30 50 L 10 L 109/79 100 06/30/21 00:16 51 L 06/30/21 00:15 51 L 8 L 99 06/30/21 00:00 36.7 C 50 L 27 H 112/76 96 06/29/21 23:50 53 L 12 96 06/29/21 23:40 52 L 9 L 99 06/29/21 23:30 47 L 8 L 120/85 95 06/29/21 23:20 52 L 10 L 99 06/29/21 23:10 64 3 L 100 06/29/21 23:00 72 10 L 142/94 H 100 06/29/21 22:59 80 10 L 149/97 H 100 06/29/21 22:50 71 6 L 83 L 06/29/21 22:49 79 12 94 06/29/21 22:40 54 L 12 98 06/29/21 22:30 128/84 06/29/21 22:20 51 L 14 97 06/29/21 22:00 57 L 10 L 115/79 98 06/29/21 21:20 54 L 12 116/71 94 06/29/21 21:10 58 L 14 116/71 97 06/29/21 20:53 52 L 10 L 105/82 99 06/29/21 20:19 52 L 12 119/82 100 Critical Care Results & Data Vital Signs (Past 12 Hours) Vital Signs Temp Pulse Pulse Resp BP BP Pulse Ox 06/30/21 07:30 56 L 13 114/79 97 06/30/21 07:00 64 13 128/79 97 06/30/21 05:30 56 L 10 L 118/80 99 06/30/21 05:00 60 9 L 132/89 99 06/30/21 04:30 37 C 60 11 L 104/85 100 06/30/21 04:00 63 12 120/80 98 06/30/21 03:30 58 L 10 L 132/86 100 06/30/21 03:00 51 L 6 L 120/86 99 06/30/21 02:30 52 L 12 126/90 100 06/30/21 02:00 56 L 12 133/88 99 06/30/21 01:30 65 12 131/85 98 06/30/21 01:00 60 11 L 130/85 99 06/30/21 00:30 50 L 10 L 109/79 100 06/30/21 00:16 51 L 06/30/21 00:15 51 L 8 L 99 06/30/21 00:00 36.7 C 50 L 27 H 112/76 96 06/29/21 23:50 53 L 12 96 06/29/21 23:40 52 L 9 L 99 06/29/21 23:30 47 L 8 L 120/85 95 06/29/21 23:20 52 L 10 L 99 06/29/21 23:10 64 3 L 100 06/29/21 23:00 72 10 L 142/94 H 100 06/29/21 22:59 80 10 L 149/97 H 100 06/29/21 22:50 71 6 L 83 L 06/29/21 22:49 79 12 94 06/29/21 22:40 54 L 12 98 06/29/21 22:30 128/84 06/29/21 22:20 51 L 14 97 06/29/21 22:00 57 L 10 L 115/79 98 06/29/21 21:20 54 L 12 116/71 94 06/29/21 21:10 58 L 14 116/71 97 06/29/21 20:53 52 L 10 L 105/82 99 06/29/21 20:19 52 L 12 119/82 100 Lab & Micro Results (Past 24 Hours) RBC 4.49 M/uL (4.7-6.1) L 06/30/21 WBC 7.76 K/uL (4.8-10.8) 06/30/21 Hgb 13.2 g/dL (14.0-18.0) L 06/30/21 Hct 39.9 % (42-52) L 06/30/21 MCV 88.9 fL (80-100) 06/30/21 MCH 29.4 pg (25-34) 06/30/21 MCHC 33.1 g/dL (32-36) 06/30/21 RDW Standard Deviation 46.5 fL (36.4-46.3) H 06/30/21 RDW Coefficient of Variation 14.1 % (11.5-14.5) 06/30/21 Plt Count 254 K/uL (130-400) 06/30/21 MPV 8.9 fL (7.4-10.4) 06/30/21 Neutrophils (%) (Auto) 58.5 % 06/30/21 Lymphocytes (%) (Auto) 32.1 % 06/30/21 Monocytes # (Auto) 0.44 K/uL (0.11-0.59) 06/30/21 Eosinophils # (Auto) 0.25 K/uL (0-0.5) 06/30/21 Immature Granulocyte % (Auto) 0.4 % 06/30/21 Neutrophils # (Auto) 4.54 K/uL (1.4-6.5) 06/30/21 Lymphocytes # (Auto) 2.49 K/uL (1.2-3.4) 06/30/21 Monocytes # (Auto) 0.44 K/uL (0.11-0.59) 06/30/21 Eosinophils # (Auto) 0.25 K/uL (0-0.5) 06/30/21 Basophils # (Auto) 0.01 K/uL (0-0.2) 06/30/21 Immature Granulocyte # (Auto) 0.03 K/uL (0.00-0.02) H 06/30/21 Na 136 mmol/L (136-145) 06/30/21 K 3.8 mmol/L (3.5-5.1) 06/30/21 Cl 104 mmol/L (98-107) 06/30/21 CO2 30 mmol/L (21-32) 06/30/21 Anion Gap 2 (3-11) L 06/30/21 BUN 18 mg/dl (6-23) 06/30/21 Creatinine 0.59 mg/dl (0.6-1.4) L 06/30/21 Estimated GFR ( Amer) 142.7 ml/min 06/30/21 Estimated GFR (Non-Af Amer) 123.1 ml/min 06/30/21 BUN/Creatinine Ratio 30.5 (10-20) H 06/30/21 Glu 86 mg/dl (70-99(Fasting)) 06/30/21 Ca 8.2 mg/dl (8.5-10.1) L 06/30/21 Phosphorus Level 3.2 mg/dl (2.5-4.9) 06/30/21 Total Bilirubin 0.5 mg/dl (0.2-1.0) 06/29/21 AST 33 U/L (13-39) 06/29/21 ALT 19 U/L (7-52) 06/29/21 Alkaline Phosphatase 79 U/L (34-104) 06/29/21 TP 7.7 gm/dl (6.0-8.3) 06/29/21 Albumin 4.7 gm/dl (3.4-5.0) 06/29/21 Globulin 3.0 gm/dl (2.5-4.0) 06/29/21 Albumin/Globulin Ratio 1.6 (0.9-2) 06/29/21 Mg 2.0 mg/dl (1.7-2.4) 06/30/21 05:10 06/30/21 Calcium Level 8.2 mg/dl (8.5-10.1) L 06/30/21 05:10 06/30/21 Blood Gas Barometric Pressure 733.4 mm/Hg 06/29/21 18:55 06/29/21 Arterial Blood pH 7.34 (7.35-7.45) L 06/29/21 18:55 06/29/21 Arterial Blood Partial Pressure CO2 55 mmHg (35-46) H 06/29/21 18:55 06/29/21 Arterial Blood Partial Pressure O2 178 mmHg (80-95) H 06/29/21 18:55 06/29/21 Arterial Blood HCO3 28 mmol/L (19-24) H 06/29/21 18:55 06/29/21 Arterial Blood Base Excess 1.3 mEq/L (-9-1.8) 06/29/21 18:55 06/29/21 Arterial Blood Oxygen Saturation 99.3 % (90-95) H 06/29/21 18:55 06/29/21 Blood Gas Oxygen Given 6L 06/29/21 18:55 06/29/21 Eriberto Test Pos (Pos) 06/29/21 18:55 06/29/21 Blood Gas Barometric Pressure 733.4 mm/Hg 06/29/21 18:55 06/29/21 Diagnostic Findings (Past 24 Hours) Chest X-Ray 06/29/21 17:09 XR chest 1V portable HISTORY: 45 years-old Male bradypnea acute shortness of breath COMPARISON: None TECHNIQUE: Portable AP view of the chest FINDINGS: Cardiomediastinal and hilar silhouettes are within normal limits. No pneumothorax, pleural effusion, airspace consolidation or overt pulmonary edema. Bones of the chest appear grossly intact. Partially imaged surgical anchor projects over the proximal left humerus. IMPRESSION: No acute process. ACT 112: Negative or not required by law. The above report was generated using voice recognition software. It may contain grammatical, syntax or spelling errors. Electronically signed by: Alton Kaminski M.D. 06/29/2021 5:[address] 06/29/21 17:10 CT head/brain wo con CLINICAL HISTORY: 45 years-old Male with AMS. Acutely altered mental status TECHNIQUE: Multiple axial CT images of the head were obtained without contrast. A dose lowering technique was utilized adhering to the principles of ALARA. CT DOSE: 1311.06 mGy.cm COMPARISON: Head CT 05/28/2008, 01/11/2008 FINDINGS: No acute intracranial hemorrhage, midline shift, intracranial mass, territorial ischemia or abnormal extra-axial collection. There is persistent dilation lateral ventricles measuring up to 4.1 cm transversely, stable back to at least 2007. Study is mildly motion degraded. The calvarium is intact. Mild mucosal thickening of the ethmoid air cells and frontal sinuses and mastoid air cells are clear. Unremarkable soft tissues and orbits. IMPRESSION: 1. No acute intracranial abnormality. 2. Unchanged ventricular prominence is stable dating back to at least 2007. ACT 112: Negative or not required by law. The above report was generated using voice recognition software. It may contain grammatical, syntax or spelling errors. Electronically signed by: Alton Kaminski M.D. 06/29/2021 5:59 PM I & O Totals 24 Hours 06/29/21 06/30/21 07/01/21 06:59 06:59 06:59 Intake Total 2.4 / 2.4 40.7 / 40.7 Output Total 350 / 350 Balance -347.6 / -347.6 40.7 / 40.7 Cumulative 06/29/21 16:26 thru 06/30/21 07:17 Intake Total 43.1 Output Total 350 Balance -306.9 RT Ventilator Mngmt (Last Documented) Ventilator Ordered Settings Respiratory Rate 13 06/30/21 07:30 Ventilator - PT Measurements Respiratory Rate 13 End-Tidal CO2 48 Coding Level of Care Code 46827 Subseq Hosp Care Lvl 2 Diagnoses Admitted to intensive care unit Z78.9 Suicidal ideation R45.851 Asthma J45.909 Seizure disorder G40.909 Drug overdose T50.904A Encounter type: initial encounter Injury intent: undetermined intent (1) Drug overdose Encounter type: initial encounter Injury intent: undetermined intent Qualified Code(s): T50.904A - Poisoning by unspecified drugs, medicaments and biological substances, undetermined, initial encounter
[2021-06-30] MEDS ORDERED: ALBUT/IPRATROP 3MG/0.5MG NEB 3 ML VIAL NEB STA (08:16)
[2021-06-30] MEDS ORDERED: ICU PROTOCOL FOR HYPERGLYCEMIA SCH (09:00)
[2021-06-30] MEDS: SODIUM CHLORIDE 0.9% 1000ML 1,000 ML IV SCH (09:05)
[2021-06-30] MEDS: FLUTICASONE/VILANTEROL 100/25MCG 14 PUFFS/INHALER INH SCH (09:05)
--- NOTE | 2021-06-30 09:33 | Electrocardiogram Report ---
Test Reason : Blood Pressure : / mmHG Vent. Rate : 077 BPM Atrial Rate : 077 BPM P-R Int : 162 ms QRS Dur : 100 ms QT Int : 408 ms P-R-T Axes : 066 084 067 degrees QTc Int : 461 ms Normal sinus rhythm Normal ECG When compared with ECG of 28-MAY-2008 03:08, No significant change was found Confirmed by Andres Mireles ([id number]) on 06/30/2021 9:33:25 AM Referred By: REFERRED SELF Confirmed By:Andres Mireles
--- NOTE | 2021-06-30 09:49 | Psychiatric Consultation ---
Date of Consultation June 30, 2021 Impression / Recommendations Impression This is a 45 yo admitted medically following an intentional overdose suicide attempt. Diagnostically consistent with unspecified depression likely MDD versus substance-induced (UDS suggestive of polysubstance use). Acute risk of self-harm remains elevated and high given suicide attempt requiring medical admission, major depressive symptoms, history of prior attempts, impulsivity, limited insight, substance use, high psychic distress. Given elevated risk of harm to self they meet criteria for inpatient psychiatric care for diagnostic clarification, safety/stabilization, development of additional coping skills, medication management and disposition/safety planning once medically stable. 302 warrant given high risk of harm to self and statements of wanting to leave AMA. Once medically stable will determine if he requires a 302 commitment. Would also continue to watch for potential benzo/alcohol withdrawal given unclear pattern of use prior to recent psychiatric admission and history of prescribed Klonopin. (1) Suicidal ideation: (2) Suicide attempt: (3) Depression, unspecified: -Continue 1-on-1 for risk of harm to self -Do not discharge or allow to leave AMA; on 302 warrant -Hold psych medications for now -Once medically cleared plan for psychiatric hospitalization (either 201 or 302 status). -For behavioral emergency: zyprexa 5mg po or 5 mg IM BID prn for agitation (do not exceed 20mg per day and DO NOT co-administer IM zyprexa with IM benzodiazepines); continue to monitor QTc, hold for QTc>500 Risk Factors Assessment Do You Have Access To A Gun?: No Psych History Identifying Data 45 yo man with a history of depression and polysubstance use with suicide attempt via overdose of heroin while admitted at the [facility] now medically admitted. Psychiatry consulted for recommendations and risk assessment. Chief Complaint "I didn't want to live". History of Present Illness Evangelist was admitted medically and is in the ICU following a suicide attempt while admitted at the [facility] for voluntary psychiatric inpatient treatment. He was re portedly found unresponsive with pinpoint pupils and cyanotic with significantly reduced RR of 6-8 bpm and received narcan on route to the ED and has since required a narcan drip. He reported to one of the ICU nurses that he ingested "street dope", which he clarified as heroin as a suicide attempt. Today he remains quite somnolent which limits his ability to provide extensive history but is oriented to person, place, month, year though has limited insight into the severity of his attempt and medical condition noting surprise when told he will likely be in the hospital through at least tomorrow. He stated he could not recall the events leading to his hospital but when asked about ingesting heroin he confirmed this and stated it was a suicide attempt "I didn't want to live". He remains ambivalent about being alive stating he feels "mixed" about surviving the attempt and continues to have depressed mood and feel "sad". Psychiatric ROS limited otherwise by his somnolence. Per chart review history of seizure, last in 2019. Past Psychiatric History Previous Psych History: hx depression and polysubstance use Outpatient Services: unknown Previous Psych Admissions: he reports 2-3 prior inpt psych hospitalizations and "a bunch" of residential inpt tx admissions for substance use Do You Have Access To A Gun?: No History of Previous Suicide Attempt: Yes (3-4 prior attempts per his report) Past Medication Trials: unknown-appears most recently was taking celexa, klonopin, gabapentin, mirtazapine and prazosin Allergies Allergy/AdvReac Type Severity Reaction Status Date / Time doxepin Allergy Unknown Unknown Verified 06/29/21 21:14 haloperidol Allergy Unknown Unknown Verified 06/29/21 21:14 mushroom Allergy Unknown PORTABELLA Verified 01/12/08 15:54 trazodone Allergy Unknown Unknown Verified 06/29/21 21:14 Home Medications Medication Instructions Recorded Confirmed Type albuterol sulfate 90 mcg/actuation 2 puff INHALATION QID PRN 06/29/21 06/29/21 History aerosol inhaler citalopram 40 mg tablet 40 mg PO DAILY 06/29/21 06/29/21 History clonazepam 0.5 mg tablet 0.5 mg PO DAILY 06/29/21 06/29/21 History gabapentin 300 mg capsule 300 mg PO TID 06/29/21 06/29/21 History mirtazapine 30 mg tablet 30 mg PO DAILY 06/29/21 06/29/21 History prazosin 2 mg capsule 2 mg PO DAILY 06/29/21 06/29/21 History Family History unable to assess Substance Abuse History reports use of various substances but that he hadn't used heroin in "years and years" and used it as a suicide attempt. History of multiple prior residential tx admissions Personal History Beliefs That Will Affect Care: None Patient History Medical History Asthma Depression Seizure disorder Social History Smoking Status: Smoker, status unknown Hx Alcohol Use: No Preferred Language: Moroccan Communication Ability: Impaired Interdisciplinary Professor Required: No Beliefs That Will Affect Care: None Current Living Situation: Spouse Other Information That Helps Us Care for You: No Feels Safe at Home: Yes Assistive Devices: Oxygen - Continuous Physical Exam Psychiatric: Orientation: oriented x 3 Apperance: appropriately dressed (hospital gown; nasal oxygen tube in place ) Eye Contact: + poor eye contact Motor Behavior: no abnormal motor movements Speech: + abnormal rate/rhythm/volume of speech (brief, very soft ) Affect: + flat affect Mood: + depressed mood Thought Process: goal directed thought process and + concrete thought process Thought Content: reality based without delusions Suicidal Thoughts: denies suicidal plan and denies suicidal intent; + reports suicidal thoughts (intermittent SI, remains ambivalent about being alive ) Homicidal Thoughts: denies homicidal thoughts Hallucinations: no auditory hallucinations and no visual hallucinations Cognition: remote memory grossly intact; + recent memory not intact, + attention not intact and + language not intact Estimated Intelligence: consistent with education level Insight: + impaired insight Judgement: + impaired judgement Vital Signs (Past 24 Hours): Last Vital Signs Temp 37 C 06/30/21 04:30 Pulse 54 L 06/30/21 09:04 Resp 11 L 06/30/21 09:04 BP 114/79 06/30/21 07:30 Pulse Ox 96 06/30/21 09:04 Review of Systems Unobtainable due to reduced consciousness Results & Data (PSY) Diagnostic Findings Reviewed EKG, QTc 461 ms Medications Administered Albuterol (Albuterol Hfa 8 Gm Inhaler) 2 puffs INH Q4R PRN PRN Reason: Wheezing Stop: 07/29/21 22:59 Last Admin: 06/29/21 22:48 Dose: 2 puffs Documented by: [id number] Fluticasone/Vilanterol (Fluticasone/Vilanterol 100/25mcg 14 Puffs/Inhaler) 1 puffs INH DAILY ANGLE Stop: 07/30/21 08:59 Last Admin: 06/30/21 09:05 Dose: 1 puffs Documented by: [id number] Sodium Chloride (Nss 1000ml) 1,000 mls @ 100 mls/hr IV .Q10H ANGLE Stop: 07/29/21 22:44 Last Admin: 06/30/21 09:05 Dose: 100 mls/hr Documented by: [id number] Infusion: 06/30/21 09:03 Dose: 0 mls/hr Documented by: [id number] Admin: 06/29/21 22:57 Dose: 100 mls/hr Documented by: [id number] Naloxone HCl 5 mg/ Sodium (Chloride) 100 mls @ 4 mls/hr IV .Q24H ANGLE; Protocol Stop: 07/29/21 23:29 Last Titration: 06/30/21 08:16 Dose: 0.2 mg/hr, 4 mls/hr Documented by: [id number] Titration: 06/30/21 07:17 Dose: 0.3 mg/hr, 6 mls/hr Documented by: [id number] Cosigned by: [id number] Titration: 06/30/21 00:30 Dose: 0.3 mg/hr, 6 mls/hr Documented by: [id number] Admin: 06/29/21 23:54 Dose: 0.2 mg/hr, 4 mls/hr Documented by: [id number] Cosigned by: [id number] Coding Level of Care Code 91919 Inpt Consult Level 3 Diagnoses Suicidal ideation R45.851 Suicide attempt T14.91XA Depression, unspecified F32.A
[2021-06-30] MEDS ORDERED: OLANZapine 10 MG/2.1 ML SDV IM PRN (14:10)
[2021-06-30] MEDS ORDERED: OLANZapine ZYDIS 5 MG ORALLY DIS. TAB PO PRN (14:11)
--- NOTE | 2021-06-30 14:45 | Hospitalist Progress Note ---
Date of Service June 30, 2021 Assessment & Plan (1) Drug overdose: Plan: Rx meds filled at [facility] on 06/20/2021 citalopram 40 mg quantity 30, clonazepam 0.5 mg quantity 30, gabapentin 300 mg quantity 90, mirtazapine 30 mg quantity 30, prazosin 2 mg quantity 30 Suspect overdose with multiple medications -possible opioid and benzodiazepines. Ecstasy, amphetamine and marijuana Could be suicidal ideation but the patient denies this morning during my exa mination Doubt any post ictal state Urine tox screen is positive for marijuana, benzodiazepines, amphetamine and ecstasy Noted to be very drowsy on admission and required repeated doses of Narcan Remain in ICU-appreciate marble ceiling installer input and recommendation Remained on one-to-one sitter and suicide precaution Appreciate psychiatric input and recommendation Has been given Zyprexa and will monitor QTC Will need to go to inpatient psych unit Not allowed to sign out AMA as per the psychiatrist (2) Acute respiratory failure: Plan: Patient is 45 y/o M with PMH seizure disorder, h/o TBI, asthma, depression presented to ER from the [facility] for reported unresponsive episode. It is reported patient self checked in yesterday for suicidal ideations and was noted to have episodes of "nodding off" throughout the day. Today around 15:00 found in shower cyanotic, unresponsive and with reported pinpoint pupils. It isreported that patient was given 2.8mg narcan intranasally as well as 1.2mg though IO prior to hospital arrival. Pills were found in a bag of patient's possession. Upon ER arrival it is reported patient was had respirations of 6 to 8 breaths/min and O2 sat of 89% on room air, was given 0.8 mg of Narcan and reportedly woke up and was talking but was intelligible and had improvement of his respirations up to 16. Is reported patient had bradypnea again and was given additional Narcan with reporting becoming more responsive and opening his eyes to questioning. CT head no acute findings. CXR: no acute findings ABG: pH: 7.34, pCO2: 55, pO2: 178, HCO3: 28, was obtained on 6L oxygen. Negative ETOH, acetaminophen, salicylate levels Has been feeling much better though remains drowsy and a little incoherent Can come out from ICU (3) Seizure disorder: Plan: Reported history seizure disorder and reported last seizure in 2019 Lower suspicion for acute seizure and postictal status however if would pt would no improve in status from above or declines, pt will require transfer for continuous EMG monitoring Has not been taking any antiseizure medication (4) Depression: Plan: Pharmacy record review patient is to be on citalopram, clonazepam (5) Asthma: Plan: Albuterol prn No acute exacerbation Disposition Follows with [facility] in [place] for routine care Admission and Anticipated Discharge Date Admission Date: June 29, 2021 Subjective 06/30/2021 The patient was seen and examined in ICU He was admitted with polysubstance overdose and required Narcan drip in the hospital ICU Remains drowsy but has been conversing reasonably well Exact mechanism how did that happen remains unknown Review of Systems Review of Systems: All systems reviewed and are unremarkable except as noted below Musculoskeletal: Remains very drowsy and lethargic and also pleasantly confused Physical Exam Physical Exam: Lying in bed comfortably Constitutional: + ill appearing and + thin Eyes: PERRL, conjunctivae normal, anicteric sclerae ENMT: external ear and nose normal, oropharynx normal Neck: trachea midline, no thyromegaly Respiratory: no respiratory distress Auscultation: lungs clear to auscultation bilaterally Cardiovascular: Rate/Rhythm: regular rate and regular rhythm; not bradycardic Heart Sounds: normal S1 and normal S2; no murmur Extremities: no edema Gastrointestinal (Abdomen): Inspection/Auscultation: normal bowel sounds; abdomen not distended Percussion/Palpation: abdomen soft; abdomen nontender Musculoskeletal: No acute arthritis in any joint Neurologic: Alert and awake. Pleasantly confused and drowsy Results & Data Results & Data ([facility]) Vital Signs (Past 12 Hours) Vital Signs Temp Pulse Pulse Resp BP Pulse Ox 06/30/21 11:00 54 L 12 119/76 95 06/30/21 10:30 58 L 12 115/80 94 06/30/21 10:00 63 15 101/68 92 06/30/21 09:31 65 12 107/65 96 06/30/21 09:04 54 L 11 L 96 06/30/21 08:30 56 L 10 L 119/81 98 06/30/21 08:00 57 L 133/71 06/30/21 07:30 56 L 13 114/79 97 06/30/21 07:00 64 13 128/79 97 06/30/21 05:30 56 L 10 L 118/80 99 06/30/21 05:00 60 9 L 132/89 99 06/30/21 04:30 37 C 60 11 L 104/85 100 06/30/21 04:00 63 12 120/80 98 06/30/21 03:30 58 L 10 L 132/86 100 06/30/21 03:00 51 L 6 L 120/86 99 06/30/21 02:30 52 L 12 126/90 100 Laboratory Results Short CBC 06/29/21 06/30/21 Range/Units 17:01 05:10 WBC 4.01 L 7.76 (4.8-10.8) K/uL Hgb 15.8 13.2 L (14.0-18.0) g/dL Hct 47.1 39.9 L (42-52) % Plt Count 284 254 (130-400) K/uL BMP 06/29/21 06/30/21 17:01 05:10 Sodium 136 136 Potassium 4.6 3.8 Chloride 100 104 Carbon Dioxide 27 30 BUN 22 18 Creatinine 1.03 0.59 L D Glucose 205 H 86 Calcium 9.3 8.2 L Cardiac Enzymes 06/29/21 Range/Units 17:01 Troponin I 0.03 (0-0.04) ng/ml Liver Function 06/29/21 Range/Units 17:01 Total Bilirubin 0.5 (0.2-1.0) mg/dl AST 33 (13-39) U/L ALT 19 (7-52) U/L Alkaline Phosphatase 79 (34-104) U/L Albumin 4.7 (3.4-5.0) gm/dl Urine 06/29/21 Range/Units 23:15 Urine Color Yellow Urine Appearance Clear (Clear) Urine pH 5.5 (4.5-7.5) Ur Specific Maud 1.021 (1.000-1.030) Urine Protein 1+ H (Negative) Urine Glucose (UA) 2+ H (Negative) Medications Administered Current Inpatient Medications Albuterol (Albuterol Hfa 8 Gm Inhaler) 2 puffs INH Q4R PRN PRN Reason: Wheezing Stop: 07/29/21 22:59 Last Admin: 06/29/21 22:48 Dose: 2 puffs Documented by: Fluticasone/Vilanterol (Fluticasone/Vilanterol 100/25mcg 14 Puffs/Inhaler) 1 puffs INH DAILY ANGLE Stop: 07/30/21 08:59 Last Admin: 06/30/21 09:05 Dose: 1 puffs Documented by: Sodium Chloride (Nss 1000ml) 1,000 mls @ 100 mls/hr IV .Q10H ANGLE Stop: 07/29/21 22:44 Last Admin: 06/30/21 09:05 Dose: 100 mls/hr Documented by: Naloxone HCl 5 mg/ Sodium (Chloride) 100 mls @ 0 mls/hr IV .Q0M ANGLE; Protocol Stop: 07/29/21 23:29 Last Titration: 06/30/21 10:00 Dose: 0 mg/hr, 0 mls/hr Documented by: Miscellaneous (Icu Protocol For Hyperglycemia) 1 ea N/A PRN PRN; Protocol PRN Reason: Hyperglycemia Protocol Stop: 07/01/21 21:48 Miscellaneous (Icu Protocol For Hyperglycemia) 1 ea N/A QAM ANGLE Stop: 07/02/21 08:59 Last Admin: 06/30/21 11:56 Dose: 1 ea Documented by: Naloxone HCl (Naloxone Hcl 0.4 Mg/1 Ml Vial/Carp) 0.2 mg IV Q1H PRN PRN Reason: Sedation Stop: 07/29/21 23:01 Olanzapine (Olanzapine 10 Mg/2.1 Ml Sdv) 5 mg IM BID PRN PRN Reason: Agitation Stop: 07/30/21 20:59 Olanzapine (Olanzapine Zydis 5 Mg Orally Dis. Tab) 5 mg PO BID PRN PRN Reason: Agitation Stop: 07/30/21 20:59 (1) Drug overdose Encounter type: initial encounter Injury intent: undetermined intent Qualified Code(s): T50.904A - Poisoning by unspecified drugs, medicaments and biological substances, undetermined, initial encounter (2) Acute respiratory failure Respiratory failure complication: hypoxia and hypercapnia Qualified Code(s): J96.01 - Acute respiratory failure with hypoxia; J96.02 - Acute respiratory failure with hypercapnia
[2021-07-01 07:36] LABS: Hematocrit (blood only) 40.6 % (42-52); Hemoglobin 13.6 g/dL (14.0-18.0); Mean Corpuscular Hemoglobin 29.6 pg (25-34); Mean Corpuscular Hgb Conc 33.5 g/dL (32-36); Mean Corpuscular Volume 88.3 fL (80-100); Mean Platelet Volume 9.5 fL (7.4-10.4); Platelet Count 249 K/uL (130-400); RDW Coefficient of Variation 14.1 % (11.5-14.5); RDW Standard Deviation 46.1 fL (36.4-46.3); White Blood Count 5.01 K/uL (4.8-10.8)
[2021-07-01 07:58] LABS: Basophils # (auto) 0.02 K/uL (0-0.2); Basophils % (auto) 0.4 %; Eosinophils # (auto) 0.22 K/uL (0-0.5); Eosinophils % (auto) 4.4 %; Immature Granulocytes # (auto) 0.01 K/uL (0.00-0.02); Immature Granulocytes % (auto) 0.2 %; Lymphocytes # (auto) 2.59 K/uL (1.2-3.4); Lymphocytes % (auto) 51.7 %; Monocytes # (auto) 0.36 K/uL (0.11-0.59); Monocytes % (auto) 7.2 %; Neutrophils # (auto) 1.81 K/uL (1.4-6.5); Neutrophils % (auto) 36.1 %
[2021-07-01 08:14] LABS: Albumin Globulin Ratio 1.7 (0.9-2); Albumin Level 3.9 gm/dl (3.4-5.0); BUN Creatinine Ratio 19.2 (10-20); Bilirubin,Total 0.6 mg/dl (0.2-1.0); Calcium 8.8 mg/dl (8.5-10.1); Creatinine Clr Calc Pharmacy 120.9 ml/min; Est GFR (African American) 127.2 ml/min; Est GFR (Non-African American) 109.8 ml/min; Globulin 2.3 gm/dl (2.5-4.0); Phosphorus 2.5 mg/dl (2.5-4.9); Potassium 4.3 mmol/L (3.5-5.1); Total Protein 6.2 gm/dl (6.0-8.3)
[2021-07-01 08:19] LABS: Base Excess ABG 4.3 mEq/L (-9-1.8); HCO3 ABG 30 mmol/L (19-24); Oxygen Saturation ABG 92.2 % (90-95); PCO2 ABG 51 mmHg (35-46); PO2 ABG 63 mmHg (80-95)
[2021-07-01 08:21] LABS: Allen Test Pos (Pos)
[2021-07-01] MEDS: FLUTICASONE/VILANTEROL 100/25MCG 14 PUFFS/INHALER INH SCH (10:02)
--- NOTE | 2021-07-01 10:25 | XRay Report ---
XR chest 2V PA/lateral HISTORY: 45 years-old Male SOB acute shortness of breath COMPARISON: Chest radiograph 06/29/2021 TECHNIQUE: PA and lateral views of the chest FINDINGS: The cardiomediastinal and hilar silhouettes are within normal limits. No pneumothorax, pleural effusi on, airspace consolidation or overt pulmonary edema. 1.4 cm opacity of the lateral left lung base was not seen on prior study and likely correlates with sclerosis associated with a chronic posterolatera l left 10th rib fracture. Healed chronic fracture of the adjacent left ninth rib. IMPRESSION: No acute process. ACT 112: Negative or not required by law. The above report was generated using voice recognition software. It may contain grammatical, syntax o r spelling errors. Electronically signed by: Alton Kaminski M.D. 07/01/2021 10:24 AM
--- NOTE | 2021-07-01 11:31 | Electrocardiogram Report ---
Test Reason : Blood Pressure : / mmHG Vent. Rate : 049 BPM Atrial Rate : 049 BPM P-R Int : 164 ms QRS Dur : 096 ms QT Int : 444 ms P-R-T Axes : 049 074 062 degrees QTc Int : 401 ms Sinus bradycardia Otherwise normal ECG When compared with ECG of 29-JUN-2021 16:45, Vent. rate has decreased BY 28 BPM QT has shortened Confirmed by Andres Mireles ([id number]) on 07/01/2021 11:30:38 AM Referred By: REFERRED SELF Confirmed By:Andres Mireles
--- NOTE | 2021-07-01 14:12 | Psychiatric Progress Note ---
Date of Service July 01, 2021 Impression / Recommendations Impression This is a 45 yo admitted medically following an intentional overdose suicide attempt. Diagnostically consistent with unspecified depression likely MDD versus substance-induced (UDS suggestive of polysubstance use). Acute risk of self-harm remains elevated and high given suicide attempt requiring medical admission, major depressive symptoms, history of prior attempts, impulsivity, limited insight, substance use, high psychic distress. Given elevated risk of harm to self they meet criteria for inpatient psychiatric care for diagnostic clarification, safety/stabilization, development of additional coping skills, medication management and disposition/safety planning once medically stable. 07/01/21: Significant improvement in medical status, now stable for psychiatric placement. Remains at high acute risk and in need of inpatient treatment, he is currently voluntary for treatment. If he asked to leave would meet 302 commitment criteria given severity of attempt and ongoing ambivalence about being alive. Referrals placed to [facility] and no beds available today. Plan: continue to hold prior to admission medications pending plan for psychiatric re-admission; referrals will be placed again in the morning (1) Suicidal ideation: (2) Suicide attempt: (3) Depression, unspecified: 07/01/21: -Continue 1-on-1 -May not leave AMA without psychiatric clearance, meets 302 criteria -Referrals in place for psychiatric hospitalization, no bed availability currently 06/30/21: -Continue 1-on-1 for risk of harm to self -Do not discharge or allow to leave AMA; on 302 warrant -Hold psych medications for now -Once medically cleared plan for psychiatric hospitalization (either 201 or 302 status). -For behavioral emergency: zyprexa 5mg po or 5 mg IM BID prn for agitation (do not exceed 20mg per day and DO NOT co-administer IM zyprexa with IM benzodiazepines); continue to monitor QTc, hold for QTc>500 Risk Factors Assessment Do You Have Access To A Gun?: No Interval History Identifying Information 45 yo man with a history of depression and polysubstance use with suicide attempt via overdose of heroin while admitted at the [facility] now medically admitted. Psychiatry consulted for recommendations and risk assessment. Chief Complaint "I don't want to go anywhere far". Review of Systems Notes Reports stable sleep and appetite. Subjective Subjective Patient was seen & assessed and interval progress reviewed. Evangelist was transferred from the ICU yesterday morning and now on the medical floor. He denies current SI but remains "mixed" about being alive and surviving the suicide attempt. He remains voluntary for the [facility] and also agrees to allow referral to [place] due to extended wait for inpatient bed availability at the [facility]. He has been sleeping during the day intermittently and plans to call his this afternoon. He denies any other concerns or questions. Physical Exam Psychiatric Orientation: oriented x 3 Apperance: appropriately dressed and appropriately groomed Eye Contact: + fair eye contact Motor Behavior: no abnormal motor movements Speech: normal rate/rhythm/volume of speech (soft ) Affect: + flat affect Mood: + depressed mood and + anxious mood Thought Process: goal directed thought process Thought Content: reality based without delusions Suicidal Thoughts: denies suicidal thoughts (remains ambivalent about being alive ), denies suicidal plan and denies suicidal intent Homicidal Thoughts: denies homicidal thoughts Hallucinations: no auditory hallucinations and no visual hallucinations Cognition: recent memory grossly intact, remote memory grossly intact, attention grossly intact and language grossly intact Estimated Intelligence: consistent with education level Insight: + impaired insight Judgement: + impaired judgement Vital Signs (Past 24 Hours) Last Vital Signs Temp 36.4 C L 07/01/21 08:00 Pulse 54 L 07/01/21 11:11 Resp 18 07/01/21 11:11 BP 99/63 L 07/01/21 08:00 Pulse Ox 94 07/01/21 11:11 Results & Data ([facility]) Laboratory Results Laboratory Results - last 24 hr 07/01/21 07/01/21 07/01/21 06:33 06:33 07:57 WBC 5.01 RBC 4.60 L Hgb 13.6 L Hct 40.6 L MCV 88.3 MCH 29.6 MCHC 33.5 RDW Std Deviation 46.1 RDW Coeff of Yadi 14.1 Plt Count 249 MPV 9.5 Immature Gran % (Auto) 0.2 Neut % (Auto) 36.1 Lymph % (Auto) 51.7 [place] % (Auto) 7.2 Eos % (Auto) 4.4 Baso % (Auto) 0.4 Neut # (Auto) 1.81 Lymph # (Auto) 2.59 [place] # (Auto) 0.36 Eos # (Auto) 0.22 Baso # (Auto) 0.02 Immature Gran # (Auto) 0.01 ABG pH 7.40 ABG pCO2 51 H ABG pO2 63 L ABG HCO3 30 H ABG O2 Saturation 92.2 ABG Base Excess 4.3 H Eriberto Test Pos Barometric Pressure 741.3 Oxygen Given Room Air Sodium 134 L Potassium 4.3 Chloride 102 Carbon Dioxide 29 Anion Gap 3 BUN 15 Creatinine 0.78 Est Cr Clr Drug Dosing 120.9 Est GFR ( Amer) 127.2 Est GFR (Non-Af Amer) 109.8 BUN/Creatinine Ratio 19.2 Glucose 90 Calcium 8.8 Phosphorus 2.5 Magnesium 2.0 Total Bilirubin 0.6 AST 12 L ALT 12 Alkaline Phosphatase 59 Total Protein 6.2 Albumin 3.9 Globulin 2.3 L Albumin/Globulin Ratio 1.7 Current Inpatient Medications Current Inpatient Medications: Current Inpatient Medications Albuterol (Albuterol Hfa 8 Gm Inhaler) 2 puffs INH Q4R PRN PRN Reason: Wheezing Stop: 07/29/21 22:59 Last Admin: 06/29/21 22:48 Dose: 2 puffs Documented by: Fluticasone/Vilanterol (Fluticasone/Vilanterol 100/25mcg 14 Puffs/Inhaler) 1 puffs INH DAILY ANGLE Stop: 07/30/21 08:59 Last Admin: 07/01/21 10:02 Dose: Not Given Documented by: Miscellaneous (Icu Protocol For Hyperglycemia) 1 ea N/A PRN PRN; Protocol PRN Reason: Hyperglycemia Protocol Stop: 07/01/21 21:48 Olanzapine (Olanzapine 10 Mg/2.1 Ml Sdv) 5 mg IM BID PRN PRN Reason: Agitation Stop: 07/30/21 20:59 Olanzapine (Olanzapine Zydis 5 Mg Orally Dis. Tab) 5 mg PO BID PRN PRN Reason: Agitation Stop: 07/30/21 20:59
--- NOTE | 2021-07-01 16:31 | Hospitalist Progress Note ---
Date of Service July 01, 2021 Assessment & Plan (1) Drug overdose: Plan: Rx meds filled at [facility] on 06/20/2021 citalopram 40 mg quantity 30, clonazepam 0.5 mg quantity 30, gabapentin 300 mg quantity 90, mirtazapine 30 mg quantity 30, prazosin 2 mg quantity 30 Suspect overdose with multiple medications -possible opioid and benzodiazepines. Ecstasy, amphetamine and marijuana Could be suicidal ideation but the patient denies this morning during my exa mination Doubt any post ictal state Urine tox screen is positive for marijuana, benzodiazepines, amphetamine and ecstasy Noted to be very drowsy on admission and required repeated doses of Narcan Remain in ICU-appreciate senior recruitment consultant input and recommendation Remained on one-to-one sitter and suicide precaution Appreciate psychiatric input and recommendation Has been given Zyprexa and will monitor QTC Will need to go to inpatient psych unit Not allowed to sign out AMA as per the psychiatrist Has been sleeping throughout the whole day parathyroids alert awake and oriented Saturating normally on room air and passed it to a stable O2 saturation test (2) Acute respiratory failure: Plan: Patient is 45 y/o M with PMH seizure disorder, h/o TBI, asthma, depression presented to ER from the [facility] for reported unresponsive episode. It is reported patient self checked in yesterday for suicidal ideations and was noted to have episodes of "nodding off" throughout the day. Today around 15:00 found in shower cyanotic, unresponsive and with reported pinpoint pupils. It isreported that patient was given 2.8mg narcan intranasally as well as 1.2mg though IO prior to hospital arrival. Pills were found in a bag of patient's possession. Upon ER arrival it is reported patient was had respirations of 6 to 8 breaths /min and O2 sat of 89% on room air, was given 0.8 mg of Narcan and reportedly woke up and was talking but was intelligible and had improvement of his respirations up to 16. Is reported patient had bradypnea again and was given additional Narcan with reporting becoming more responsive and opening his eyes to questioning. CT head no acute findings. CXR: no acute findings ABG: pH: 7.34, pCO2: 55, pO2: 178, HCO3: 28, was obtained on 6L oxygen. Negative ETOH, acetaminophen, salicylate levels Has been feeling much better though remains drowsy and a little incoherent Can come out from ICU ABG that was drawn this morning showed pH 7.40, PCO2 51, PO2 63, bicarb 30 and base excess 4.3-was not accepted to [facility] with this set of blood gas He has been saturating normally on room air We will get repeat ABG in the morning (3) Seizure disorder: Plan: Reported history seizure disorder and reported last seizure in 2019 Lower suspicion for acute seizure and postictal status however if would pt would no improve in status from above or declines, pt will require transfer for continuous EMG monitoring Has not been taking any antiseizure medication (4) Depression: Plan: Pharmacy record review patient is to be on citalopram, clonazepam (5) Asthma: Plan: Albuterol prn No acute exacerbation Disposition Follows with [facility] in [place] for routine care Admission and Anticipated Discharge Date Admission Date: June 29, 2021 Subjective 06/30/2021 The patient was seen and examined in ICU He was admitted with polysubstance overdose and required Narcan drip in the hospital ICU Remains drowsy but has been conversing reasonably well Exact mechanism how did that happen remains unknown 07/01/2021 The patient was seen and examined in medical telemetry unit He has been sleeping throughout the whole day today His arterial blood gas this morning showed decrease in O2 at 60s and increasing CO2 of 59 He denies any symptoms and he will need to have better ABG before he can be transferred to [facility] Review of Systems Review of Systems: All systems reviewed and are unremarkable except as noted below Musculoskeletal: Remains very drowsy and lethargic and also pleasantly confused Physical Exam Physical Exam: Lying in bed comfortably Constitutional: + ill appearing and + thin Eyes: PERRL, conjunctivae normal, anicteric sclerae ENMT: external ear and nose normal, oropharynx normal Neck: trachea midline, no thyromegaly Respiratory: no respiratory distress Auscultation: lungs clear to auscultation bilaterally Cardiovascular: Rate/Rhythm: regular rate and regular rhythm; not bradycardic Heart Sounds: normal S1 and normal S2; no murmur Extremities: no edema Gastrointestinal (Abdomen): Inspection/Auscultation: normal bowel sounds; abdomen not distended Percussion/Palpation: abdomen soft; abdomen nontender Results & Data Results & Data ([facility]) Vital Signs (Past 12 Hours) Vital Signs Temp Pulse Pulse Pulse Pulse Resp Resp 07/01/21 11:15 36.6 C 72 18 07/01/21 11:11 83 60 54 L 18 07/01/21 08:00 36.4 C L 63 20 Resp Resp BP Pulse Ox Pulse Ox Pulse Ox Pulse Ox 07/01/21 11:15 102/68 93 07/01/21 11:11 18 18 91 97 94 07/01/21 08:00 99/63 L 93 Laboratory Results Short CBC 07/01/21 Range/Units 06:33 WBC 5.01 (4.8-10.8) K/uL Hgb 13.6 L (14.0-18.0) g/dL Hct 40.6 L (42-52) % Plt Count 249 (130-400) K/uL BMP 07/01/21 06:33 Sodium 134 L Potassium 4.3 Chloride 102 Carbon Dioxide 29 BUN 15 Creatinine 0.78 Glucose 90 Calcium 8.8 Liver Function 07/01/21 Range/Units 06:33 Total Bilirubin 0.6 (0.2-1.0) mg/dl AST 12 L (13-39) U/L ALT 12 (7-52) U/L Alkaline Phosphatase 59 (34-104) U/L Albumin 3.9 (3.4-5.0) gm/dl Medications Administered Current Inpatient Medications Albuterol (Albuterol Hfa 8 Gm Inhaler) 2 puffs INH Q4R PRN PRN Reason: Wheezing Stop: 07/29/21 22:59 Last Admin: 06/29/21 22:48 Dose: 2 puffs Documented by: Fluticasone/Vilanterol (Fluticasone/Vilanterol 100/25mcg 14 Puffs/Inhaler) 1 puffs INH DAILY ANGLE Stop: 07/30/21 08:59 Last Admin: 07/01/21 10:02 Dose: Not Given Documented by: Miscellaneous (Icu Protocol For Hyperglycemia) 1 ea N/A PRN PRN; Protocol PRN Reason: Hyperglycemia Protocol Stop: 07/01/21 21:48 Olanzapine (Olanzapine 10 Mg/2.1 Ml Sdv) 5 mg IM BID PRN PRN Reason: Agitation Stop: 07/30/21 20:59 Olanzapine (Olanzapine Zydis 5 Mg Orally Dis. Tab) 5 mg PO BID PRN PRN Reason: Agitation Stop: 07/30/21 20:59 (1) Drug overdose Encounter type: initial encounter Injury intent: undetermined intent Qualified Code(s): T50.904A - Poisoning by unspecified drugs, medicaments and biological substances, undetermined, initial encounter (2) Acute respiratory failure Respiratory failure complication: hypoxia and hypercapnia Qualified Code(s): J96.01 - Acute respiratory failure with hypoxia; J96.02 - Acute respiratory failure with hypercapnia
[2021-07-02 08:24] LABS: Base Excess ABG 2.7 mEq/L (-9-1.8); HCO3 ABG 26 mmol/L (19-24); Oxygen Saturation ABG 92.3 % (90-95); PCO2 ABG 37 mmHg (35-46); PO2 ABG 61 mmHg (80-95); pH ABG 7.47 (7.35-7.45)
[2021-07-02 08:48] LABS: BUN Creatinine Ratio 21.1 (10-20); Creatinine Clr Calc Pharmacy 132.8 ml/min; Est GFR (African American) 132.3 ml/min; Est GFR (Non-African American) 114.1 ml/min; Magnesium 2.1 mg/dl (1.7-2.4); Phosphorus 2.9 mg/dl (2.5-4.9); Potassium 4.1 mmol/L (3.5-5.1)
[2021-07-02 08:51] LABS: Allen Test Pos (Pos)
[2021-07-02 09:05] LABS: Basophils # (auto) 0.02 K/uL (0-0.2); Basophils % (auto) 0.2 %; Eosinophils # (auto) 0.11 K/uL (0-0.5); Eosinophils % (auto) 1.2 %; Hematocrit (blood only) 46.2 % (42-52); Hemoglobin 16.4 g/dL (14.0-18.0); Immature Granulocytes # (auto) 0.02 K/uL (0.00-0.02); Immature Granulocytes % (auto) 0.2 %; Lymphocytes # (auto) 1.74 K/uL (1.2-3.4); Lymphocytes % (auto) 18.5 %; Mean Corpuscular Hemoglobin 30.1 pg (25-34); Mean Corpuscular Hgb Conc 35.5 g/dL (32-36); Mean Corpuscular Volume 84.9 fL (80-100); Mean Platelet Volume 9.4 fL (7.4-10.4); Monocytes # (auto) 0.77 K/uL (0.11-0.59); Monocytes % (auto) 8.2 %; Neutrophils # (auto) 6.74 K/uL (1.4-6.5); Neutrophils % (auto) 71.7 %; Platelet Count 264 K/uL (130-400); RDW Coefficient of Variation 13.7 % (11.5-14.5); RDW Standard Deviation 42.2 fL (36.4-46.3); Red Blood Count 5.44 M/uL (4.7-6.1)
[2021-07-02] MEDS: FLUTICASONE/VILANTEROL 100/25MCG 14 PUFFS/INHALER INH SCH (09:07)
--- NOTE | 2021-07-02 13:19 | Psychiatric Progress Note ---
Date of Service July 02, 2021 Impression / Recommendations Impression This is a 45 yo admitted medically following an intentional overdose suicide attempt. Diagnostically consistent with unspecified depression likely MDD versus substance-induced (UDS suggestive of polysubstance use). Acute risk of self-harm remains elevated and high given suicide attempt requiring medical admission, major depressive symptoms, history of prior attempts, impulsivity, limited insight, substance use, high psychic distress. Given elevated risk of harm to self they meet criteria for inpatient psychiatric care for diagnostic clarification, safety/stabilization, development of additional coping skills, medication management and disposition/safety planning once medically stable. 07/02/21: Remains medically stable for psychiatric placement, referrals placed for [facility] and [place], no bed availability today. More engaged in interview today, suspect his lack of memory regarding his suicide attempt (which he previously discussed with me) is in light of his concerns about potential legal consequences from possession of heroin while at the [facility]. Remains at high acute risk and in need of inpatient treatment, he is currently voluntary for treatment. If he asked to leave would meet 302 commitment criteria given severity of attempt and ongoing ambivalence about being alive. Plan: continue to hold prior to admission medications pending plan for psychiatric re-admission; referrals placed, no bed availability today, will re- refer in the morning tomorrow. Continue 1-on-1 (1) Suicidal ideation: (2) Suicide attempt: (3) Depression, unspecified: 07/01/21: -Continue 1-on-1 -May not leave AMA without psychiatric clearance, meets 302 criteria -Referrals in place for psychiatric hospitalization, no bed availability currently 06/30/21: -Continue 1-on-1 for risk of harm to self -Do not discharge or allow to leave AMA; on 302 warrant -Hold psych medications for now -Once medically cleared plan for psychiatric hospitalization (either 201 or 302 status). -For behavioral emergency: zyprexa 5mg po or 5 mg IM BID prn for agitation (do not exceed 20mg per day and DO NOT co-administer IM zyprexa with IM benzodiazepines); continue to monitor QTc, hold for QTc>500 Risk Factors Assessment Do You Have Access To A Gun?: No Interval History Identifying Information 45 yo man with a history of depression and polysubstance use with suicide attempt via overdose of heroin while admitted at the [facility] now medically admitted. Psychiatry consulted for recommendations and risk assessment. Chief Complaint "Am I in trouble?". Review of Systems Notes Endorses stable sleep and appetite. Denies any other physical complaints. Subjective Subjective Patient was seen & assessed and interval progress reviewed. jazmín continues to sleep for most of the day though is more alert and communicative today. He continues to endorse depressed mood and is tearful intermittently. He did find it helpful to speak with his yesterday on the phone. He states he cannot recall taking the overdose and wonders "why would I do that if I was seeking help". We review my understanding of the events leading to his hospitalization and he asks "am I in trouble now?" and we review that my understanding is that no legal charges have occurred regarding his possession of heroin and rather that everyone is focused on him continuing to receive inpatient psychiatric tr eatment for his SI and depression. He seems relieved by this. Discussed that [facility] have beds available today which he understands. He remains voluntary for treatment. Physical Exam Psychiatric Orientation: oriented x 3 Apperance: appropriately dressed and appropriately groomed Eye Contact: + fair eye contact Motor Behavior: no abnormal motor movements Speech: normal rate/rhythm/volume of speech (soft ) Affect: + tearful affect Mood: + depressed mood and + anxious mood Thought Process: goal directed thought process Thought Content: reality based without delusions Suicidal Thoughts: denies suicidal thoughts (remains somewhat ambivalent about being alive ), denies suicidal plan and denies suicidal intent Homicidal Thoughts: denies homicidal thoughts Hallucinations: no auditory hallucinations and no visual hallucinations Cognition: recent memory grossly intact, remote memory grossly intact, attention grossly intact and language grossly intact Estimated Intelligence: consistent with education level Insight: + impaired insight Judgement: + impaired judgement Vital Signs (Past 24 Hours) Last Vital Signs Temp 36.6 C 07/02/21 07:26 Pulse 84 07/02/21 07:26 Resp 18 07/02/21 07:26 BP 109/74 07/02/21 07:26 Pulse Ox 92 07/02/21 07:26 Results & Data ([facility]) Laboratory Results Laboratory Results - last 24 hr 07/02/21 07/02/21 07/02/21 07:55 07:55 08:13 WBC 9.40 RBC 5.44 Hgb 16.4 Hct 46.2 MCV 84.9 MCH 30.1 MCHC 35.5 RDW Std Deviation 42.2 RDW Coeff of Yadi 13.7 Plt Count 264 MPV 9.4 Immature Gran % (Auto) 0.2 Neut % (Auto) 71.7 Lymph % (Auto) 18.5 [place] % (Auto) 8.2 Eos % (Auto) 1.2 Baso % (Auto) 0.2 Neut # (Auto) 6.74 H Lymph # (Auto) 1.74 [place] # (Auto) 0.77 H Eos # (Auto) 0.11 Baso # (Auto) 0.02 Immature Gran # (Auto) 0.02 ABG pH 7.47 H ABG pCO2 37 ABG pO2 61 L ABG HCO3 26 H ABG O2 Saturation 92.3 ABG Base Excess 2.7 H Eriberto Test Pos Barometric Pressure 737.9 Oxygen Given RA Sodium 132 L Potassium 4.1 Chloride 98 Carbon Dioxide 27 Anion Gap 7 BUN 15 Creatinine 0.71 Est Cr Clr Drug Dosing 132.8 Est GFR ( Amer) 132.3 Est GFR (Non-Af Amer) 114.1 BUN/Creatinine Ratio 21.1 H Glucose 103 H Calcium 10.0 Phosphorus 2.9 Magnesium 2.1 Current Inpatient Medications Current Inpatient Medications: Current Inpatient Medications Albuterol (Albuterol Hfa 8 Gm Inhaler) 2 puffs INH Q4R PRN PRN Reason: Wheezing Stop: 07/29/21 22:59 Last Admin: 06/29/21 22:48 Dose: 2 puffs Documented by: Fluticasone/Vilanterol (Fluticasone/Vilanterol 100/25mcg 14 Puffs/Inhaler) 1 puffs INH DAILY ANGLE Stop: 07/30/21 08:59 Last Admin: 07/02/21 09:07 Dose: 1 puffs Documented by: Olanzapine (Olanzapine 10 Mg/2.1 Ml Sdv) 5 mg IM BID PRN PRN Reason: Agitation Stop: 07/30/21 20:59 Olanzapine (Olanzapine Zydis 5 Mg Orally Dis. Tab) 5 mg PO BID PRN PRN Reason: Agitation Stop: 07/30/21 20:59
[2021-07-02 16:53] LABS: iSTAT Arterial Blood Gas HCO3 28 meg/L (19-24); iSTAT Arterial Blood Gas pCO2 59 mmHg (35-46); iSTAT Arterial Blood Gas pH 7.28 (7.35-7.45); iSTAT Arterial Blood Gas pO2 87 mmHg (80-95); iSTAT Carbon Dioxide 29 mmol/L (24-31)
[2021-07-02 16:54] LABS: iSTAT Sample Type Arterial
--- NOTE | 2021-07-02 18:08 | Hospitalist Progress Note ---
Date of Service July 02, 2021 Assessment & Plan (1) Drug overdose: Plan: Rx meds filled at [place] pharmacy on 06/20/2021 citalopram 40 mg quantity 30, clonazepam 0.5 mg quantity 30, gabapentin 300 mg quantity 90, mirtazapine 30 mg quantity 30, prazosin 2 mg quantity 30 Suspect overdose with multiple medications -possible opioid and benzodiazepines. Ecstasy, amphetamine and marijuana Could be suicidal ideation but the patient denies this morning during my exa mination Doubt any post ictal state Urine tox screen is positive for marijuana, benzodiazepines, amphetamine and ecstasy Noted to be very drowsy on admission and required repeated doses of Narcan Remain in ICU-appreciate process automation engineer input and recommendation Remained on one-to-one sitter and suicide precaution Appreciate psychiatric input and recommendation Has been given Zyprexa and will monitor QTC Will need to go to inpatient psych unit Not allowed to sign out AMA as per the psychiatrist Has been sleeping throughout the whole day parathyroids alert awake and oriented Saturating normally on room air and passed it to a stable O2 saturation test Remains on one-to-one sitter without any agitation (2) Acute respiratory failure: Plan: Patient is 45 y/o M with PMH seizure disorder, h/o TBI, asthma, depression presented to ER from the [facility] for reported unresponsive episode. It is reported patient self checked in yesterday for suicidal ideations and was noted to have episodes of "nodding off" throughout the day. Today around 15:00 found in shower cyanotic, unresponsive and with reported pinpoint pupils. It isreported that patient was given 2.8mg narcan intranasally as well as 1.2mg though IO prior to hospital arrival. Pills were found in a bag of patient's possession. Upon ER arrival it is reported patient was had respirations of 6 to 8 breaths/min and O2 sat of 89% on room air, was given 0.8 mg of Narcan and reportedly woke up and was talking but was intelligible and had improvement of his respirations up to 16. Is reported patient had bradypnea again and was given additional Narcan with reporting becoming more responsive and opening his eyes to questioning. CT head no acute findings. CXR: no acute findings ABG: pH: 7.34, pCO2: 55, pO2: 178, HCO3: 28, was obtained on 6L oxygen. Negative ETOH, acetaminophen, salicylate levels Has been feeling much better though remains drowsy and a little incoherent Can come out from ICU ABG that was drawn this morning showed pH 7.40, PCO2 51, PO2 63, bicarb 30 and base excess 4.3-was not accepted to [facility] with this set of blood gas He has been saturating normally on room air We will get repeat ABG in the morning-O2 only 60 Will get nocturnal pulse oximetry and repeat ABG in the morning (3) Seizure disorder: Plan: Reported history seizure disorder and reported last seizure in 2019 Lower suspicion for acute seizure and postictal status however if would pt would no improve in status from above or declines, pt will require transfer for continuous EMG monitoring Has not been taking any antiseizure medication (4) Depression: Plan: Pharmacy record review patient is to be on citalopram, clonazepam (5) Asthma: Plan: Albuterol prn No acute exacerbation Disposition Follows with [facility] in [place] for routine care Admission and Anticipated Discharge Date Admission Date: June 29, 2021 Subjective 06/30/2021 The patient was seen and examined in ICU He was admitted with polysubstance overdose and required Narcan drip in the hospital ICU Remains drowsy but has been conversing reasonably well Exact mechanism how did that happen remains unknown 07/01/2021 The patient was seen and examined in medical telemetry unit He has been sleeping throughout the whole day today His arterial blood gas this morning showed decrease in O2 at 60s and increasing CO2 of 59 He denies any symptoms and he will need to have better ABG before he can be transferred to [facility] 07/02/2021 The patient was seen and examined in medical telemetry unit He has been sleeping a lot and denies any symptoms and not being agitated His blood test remains remarkable for low oxygen at 60 Review of Systems Review of Systems: All systems reviewed and are unremarkable except as noted below Musculoskeletal: Remains very drowsy and lethargic and also pleasantly c onfused Physical Exam Physical Exam: Lying in bed comfortably Constitutional: + ill appearing and + thin Eyes: PERRL, conjunctivae normal, anicteric sclerae ENMT: external ear and nose normal, oropharynx normal Neck: trachea midline, no thyromegaly Respiratory: no respiratory distress Auscultation: lungs clear to auscu ltation bilaterally Cardiovascular: Rate/Rhythm: regular rate and regular rhythm; not bradycardic Heart Sounds: normal S1 and normal S2; no murmur Extremities: no edema Gastrointestinal (Abdomen): Inspection/Auscultation: normal bowel sounds; abdomen not distended Percussion/Palpation: abdomen soft; abdomen nontender Neurologic: Has been sleeping a lot. No focal neuro deficit Results & Data Results & Data ([facility]) Vital Signs (Past 12 Hours) Vital Signs Temp Pulse Resp BP Pulse Ox 07/02/21 15:00 37.0 C 92 H 18 114/77 98 07/02/21 07:26 36.6 C 84 18 109/74 92 (1) Drug overdose Encounter type: initial encounter Injury intent: undetermined intent Qualified Code(s): T50.904A - Poisoning by unspecified drugs, medicaments and biological substances, undetermined, initial encounter (2) Acute respiratory failure Respiratory failure complication: hypoxia and hypercapnia Qualified Code(s): J96.01 - Acute respiratory failure with hypoxia; J96.02 - Acute respiratory failure with hypercapnia
[2021-07-03] MEDS: FLUTICASONE/VILANTEROL 100/25MCG 14 PUFFS/INHALER INH SCH (09:29)
--- NOTE | 2021-07-03 14:29 | Psychiatric Progress Note ---
Date of Service July 03, 2021 Impression / Recommendations Impression This is a 45 yo admitted medically following an intentional overdose suicide attempt. Diagnostically consistent with unspecified depression likely MDD versus substance-induced (UDS suggestive of polysubstance use). Acute risk of self-harm remains elevated and high given suicide attempt requiring medical admission, major depressive symptoms, history of prior attempts, impulsivity, limited insight, substance use, high psychic distress. Given elevated risk of harm to self they meet criteria for inpatient psychiatric care for diagnostic clarification, safety/stabilization, development of additional coping skills, medication management and disposition/safety planning once medically stable. 07/03/21: Remains medically stable for psychiatric placement, referrals placed for [facility]. Continues to endorse depression, holding off on restarting psychiatric medications given plan for inpatient treatment. Remains at high acute risk and in need of inpatient treatment, he is currently voluntary for treatment. If he asked to leave would meet 302 commitment criteria given severity of attempt and ongoing ambivalence about being alive. Plan: continue to hold prior to admission medications pending plan for psychiatric re-admission; referrals placed, no bed availability today, will re- refer in the morning tomorrow. Continue 1-on-1. No longer on 302 warrant as he is medically stable and agreeable to voluntary psychiatric treatment. (1) Suicidal ideation: (2) Suicide attempt: (3) Depression, unspecified: 07/01/21: -Continue 1-on-1 -May not leave AMA without psychiatric clearance, meets 302 criteria -Referrals in place for psychiatric hospitalization, no bed availability currently 06/30/21: -Continue 1-on-1 for risk of harm to self -Do not discharge or allow to leave AMA; on 302 warrant -Hold psych medications for now -Once medically cleared plan for psychiatric hospitalization (either 201 or 302 status). -For behavioral emergency: zyprexa 5mg po or 5 mg IM BID prn for agitation (do not exceed 20mg per day and DO NOT co-administer IM zyprexa with IM benzodiazepines); continue to monitor QTc, hold for QTc>500 Risk Factors Assessment Do You Have Access To A Gun?: No Interval History Identifying Information 45 yo man with a history of depression and polysubstance use with suicide attempt via overdose of heroin while admitted at the [facility] now medically admitted. Psychiatry consulted for recommendations and risk assessment. Chief Complaint "I'm just really sad". Review of Systems Notes stable appetite, increased sleep Subjective Subjective Patient was seen & assessed and interval progress reviewed. Evangelist denies SI but remains very depressed. Discussed process with referrals, sent lots of information to [facility] today for them to review. He remains voluntary for inpt treatment at [facility] or [facility]. He denies any other concerns nor any physical complaints. Increased sleep, low energy, stable appetite. Behaviorally appropriate. Hoping his may visit him this afternoon. Physical Exam Psychiatric Orientation: oriented x 3 Apperance: appropriately dressed and appropriately groomed Eye Contact: + fair eye contact Motor Behavior: no abnormal motor movements Speech: normal rate/rhythm/volume of speech (soft ) Affect: + constricted affect Mood: + depressed mood Thought Process: goal directed thought process Thought Content: reality based without delusions Suicidal Thoughts: denies suicidal thoughts (remains somewhat ambivalent about being alive ), denies suicidal plan and denies suicidal intent Homicidal Thoughts: denies homicidal thoughts Hallucinations: no auditory hallucinations and no visual hallucinations Cognition: recent memory grossly intact, remote memory grossly intact, attention grossly intact and language grossly intact Estimated Intelligence: consistent with education level Insight: + limited insight Judgement: + fair judgement Vital Signs (Past 24 Hours) Last Vital Signs Temp 36.3 C L 07/03/21 13:01 Pulse 80 07/03/21 13:01 Resp 18 07/03/21 13:01 BP 111/77 07/03/21 13:01 Pulse Ox 96 07/03/21 13:01 Results & Data ([facility]) Laboratory Results Laboratory Results - last 24 hr 06/29/21 17:12 Specimen Type Arterial POC pH 7.28 L POC pCO2 59 H POC pO2 87 POC HCO3 28 H POC Total CO2 29 POC Base Excess 1.0 POC ABG O2 Sat 95.0 Current Inpatient Medications Current Inpatient Medications: Current Inpatient Medications Albuterol (Albuterol Hfa 8 Gm Inhaler) 2 puffs INH Q4R PRN PRN Reason: Wheezing Stop: 07/29/21 22:59 Last Admin: 06/29/21 22:48 Dose: 2 puffs Documented by: Fluticasone/Vilanterol (Fluticasone/Vilanterol 100/25mcg 14 Puffs/Inhaler) 1 puffs INH DAILY ANGLE Stop: 07/30/21 08:59 Last Admin: 07/03/21 09:29 Dose: 1 puffs Documented by: Olanzapine (Olanzapine 10 Mg/2.1 Ml Sdv) 5 mg IM BID PRN PRN Reason: Agitation Stop: 07/30/21 20:59 Olanzapine (Olanzapine Zydis 5 Mg Orally Dis. Tab) 5 mg PO BID PRN PRN Reason: Agitation Stop: 07/30/21 20:59
--- NOTE | 2021-07-03 19:00 | Hospitalist Progress Note ---
Date of Service July 03, 2021 Assessment & Plan (1) Drug overdose: Plan: Rx meds filled at [place] pharmacy on 06/20/2021 citalopram 40 mg quantity 30, clonazepam 0.5 mg quantity 30, gabapentin 300 mg quantity 90, mirtazapine 30 mg quantity 30, prazosin 2 mg quantity 30 Suspect overdose with multiple medications -possible opioid and benzodiazepines. Ecstasy, amphetamine and marijuana Could be suicidal ideation but the patient denies this morning during my exa mination Doubt any post ictal state Urine tox screen is positive for marijuana, benzodiazepines, amphetamine and ecstasy Noted to be very drowsy on admission and required repeated doses of Narcan Remain in ICU-appreciate quality systems technician input and recommendation Remained on one-to-one sitter and suicide precaution Appreciate psychiatric input and recommendation Has been given Zyprexa and will monitor QTC Will need to go to inpatient psych unit Not allowed to sign out AMA as per the psychiatrist Has been sleeping throughout the whole day parathyroids alert awake and oriented Saturating normally on room air and passed it to a stable O2 saturation test Remains on one-to-one sitter without any agitation Medically stable awaiting transfer to [facility] (2) Acute respiratory failure: Plan: Patient is 45 y/o M with PMH seizure disorder, h/o TBI, asthma, depression presented to ER from the [facility] for reported unresponsive episode. It is reported patient self checked in yesterday for suicidal ideations and was noted to have episodes of "nodding off" throughout the day. Today around 15:00 found in shower cyanotic, unresponsive and with reported pinpoint pupils. It isreported that patient was given 2.8mg narcan intranasally as well as 1.2mg though IO prior to hospital arrival. Pills were found in a bag of patient's possession. Upon ER arrival it is reported patient was had respirations of 6 to 8 breaths/min and O2 sat of 89% on room air, was given 0.8 mg of Narcan and reportedly woke up and was talking but was intelligible and had improvement of his respirations up to 16. Is reported patient had bradypnea again and was given additional Narcan with reporting becoming more responsive and opening his eyes to questioning. CT head no acute findings. CXR: no acute findings ABG: pH: 7.34, pCO2: 55, pO2: 178, HCO3: 28, was obtained on 6L oxygen. Negative ETOH, acetaminophen, salicylate levels Has been feeling much better though remains drowsy and a little incoherent Can come out from ICU ABG that was drawn this morning showed pH 7.40, PCO2 51, PO2 63, bicarb 30 and base excess 4.3-was not accepted to [facility] with this set of blood gas He has been saturating normally on room air We will get repeat ABG in the morning-O2 only 60 Will get nocturnal pulse oximetry and repeat ABG in the morning Nocturnal pulse oximetry has been unremarkable Will get ABG in the morning (3) Seizure disorder: Plan: Reported history seizure disorder and reported last seizure in 2019 Lower suspicion for acute seizure and postictal status however if would pt would no improve in status from above or declines, pt will require transfer for carin nuous EMG monitoring Has not been taking any antiseizure medication (4) Depression: Plan: Pharmacy record review patient is to be on citalopram, clonazepam (5) Asthma: Plan: Albuterol prn No acute exacerbation Disposition Follows with [facility] in [place] for routine care Plan: Likely transfer to [facility] tomorrow Admission and Anticipated Discharge Date Admission Date: June 29, 2021 Subjective 06/30/2021 The patient was seen and examined in ICU He was admitted with polysubstance overdose and required Narcan drip in the hospital ICU Remains drowsy but has been conversing reasonably well Exact mechanism how did that happen remains unknown 07/01/2021 The patient was seen and examined in medical telemetry unit He has been sleeping throughout the whole day today His arterial blood gas this morning showed decrease in O2 at 60s and increasing CO2 of 59 He denies any symptoms and he will need to have better ABG before he can be transferred to [facility] 07/02/2021 The patient was seen and examined in medical telemetry unit He has been sleeping a lot and denies any symptoms and not being agitated His blood test remains remarkable for low oxygen at 60 07/03/2021 The patient was seen and examined in medical telemetry unit He has had normal nocturnal pulse oximetry but refused ABG this morning He has been accepted to [facility] yet Review of Systems Review of Systems: All systems reviewed and are unremarkable except as noted below Musculoskeletal: Remains very drowsy and lethargic and also pleasantly confused Physical Exam Physical Exam: Lying in bed comfortably Constitutional: + ill appearing and + thin Eyes: PERRL, conjunctivae normal, anicteric sclerae ENMT: external ear and nose normal, oropharynx normal Neck: trachea midline, no thyromegaly Respiratory: no respiratory distress Auscultation: lungs clear to auscultation bilaterally Cardiovascular: Rate/Rhythm: regular rate and regular rhythm; not bradycardic Heart Sounds: normal S1 and normal S2; no murmur Extremities: no edema Gastrointestinal (Abdomen): Inspection/Auscultation: normal bowel sounds; abdomen not distended Percussion/Palpation: abdomen soft; abdomen nontender Neurologic: Alert awake and oriented x3. Has been sleeping a lot Results & Data Results & Data ([facility]) Vital Signs (Past 12 Hours) Vital Signs Temp Pulse Resp BP Pulse Ox 07/03/21 13:01 36.3 C L 80 18 111/77 96 07/03/21 07:53 36.5 C 85 18 110/81 92 (1) Drug overdose Encounter type: initial encounter Injury intent: undetermined intent Qualified Code(s): T50.904A - Poisoning by unspecified drugs, medicaments and biological substances, undetermined, initial encounter (2) Acute respiratory failure Respiratory failure complication: hypoxia and hypercapnia Qualified Code(s): J96.01 - Acute respiratory failure with hypoxia; J96.02 - Acute respiratory failure with hypercapnia
[2021-07-04 07:36] LABS: Base Excess ABG 0.9 mEq/L (-9-1.8); HCO3 ABG 24 mmol/L (19-24); Oxygen Saturation ABG 94.7 % (90-95); PCO2 ABG 35 mmHg (35-46); PO2 ABG 68 mmHg (80-95); pH ABG 7.45 (7.35-7.45)
[2021-07-04 07:41] LABS: Allen Test Pos (Pos)
[2021-07-04] MEDS: FLUTICASONE/VILANTEROL 100/25MCG 14 PUFFS/INHALER INH SCH (07:55)
--- NOTE | 2021-07-04 13:25 | Psychiatric Progress Note ---
Date of Service July 04, 2021 Impression / Recommendations Impression This is a 45 yo admitted medically following an intentional overdose suicide attempt. Diagnostically consistent with unspecified depression likely MDD versus substance-induced (UDS suggestive of polysubstance use). Acute risk of self-harm remains elevated and high given suicide attempt requiring medical admission, major depressive symptoms, history of prior attempts, impulsivity, limited insight, substance use, high psychic distress. Given elevated risk of harm to self they meet criteria for inpatient psychiatric care for diagnostic clarification, safety/stabilization, development of additional coping skills, medication management and disposition/safety planning once medically stable. 07/04/21: Remains medically stable for psychiatric placement, referrals placed for [facility], [facility] reviewing again today. Continues to endorse depression, reviewed risks/benefits/alternatives for psychiatric medications. He consents to restarting citalopram, prazosin and gabapentin-reviewed risks including but not limited to GI/DIXON, syncope/low BP, and dizziness/abuse potential. Holding on mirtazapine given prominent depressive symptoms of excessive sleep and fatigue. Remains at high acute risk and in need of inpatient treatment, he is currently voluntary for treatment. If he asked to leave would meet 302 commitment criteria given severity of attempt and ongoing ambivalence about being alive. Plan: restart citalopram 20mg qd, gabapentin 300mg TID and prazosin 1 mg qhs. Continue 1-on-1. Referrals placed at [facility]. (1) Suicidal ideation: (2) Suicide attempt: (3) Depression, unspecified: 07/01/21: -Continue 1-on-1 -May not leave AMA without psychiatric clearance, meets 302 criteria -Referrals in place for psychiatric hospitalization, no bed availability currently 06/30/21: -Continue 1-on-1 for risk of harm to self -Do not discharge or allow to leave AMA; on 302 warrant -Hold psych medications for now -Once medically cleared plan for psychiatric hospitalization (either 201 or 302 status). -For behavioral emergency: zyprexa 5mg po or 5 mg IM BID prn for agitation (do not exceed 20mg per day and DO NOT co-administer IM zyprexa with IM benzodiazepines); continue to monitor QTc, hold for QTc>500 Risk Factors Assessment Do You Have Access To A Gun?: No Interval History Identifying Information 45 yo man with a history of depression and polysubstance use with suicide attempt via overdose of heroin while admitted at the [facility] now medically admitted. Psychiatry consulted for recommendations and risk assessment. Chief Complaint "I just wish I could home but I know I need treatment". Review of Systems Notes Sleep is stable. Appetite stable. Subjective Subjective Patient was seen & assessed and interval progress reviewed. Continuing to await inpatient psychiatric availability, he wants to continue waiting for [facility] or [facility] does not desire expanded referrals at this point as he does not want to be far from home. He is interested in restarting his prior psychiatric medications, has found celexa very helpful and uses gabapentin for nerve pain and anxiety and prazosin for night terrors from PTSD. He denies SI today but remains very depressed with increased fatigue though awake and alert today and had already eaten lunch. Physical Exam Psychiatric Orientation: oriented x 3 Apperance: appropriately dressed and appropriately groomed Eye Contact: + fair eye contact Motor Behavior: no abnormal motor movements Speech: normal rate/rhythm/volume of speech Affect: + depressed affect Mood: + depressed mood and + anxious mood Thought Process: goal directed thought process Thought Content: reality based without delusions Suicidal Thoughts: denies suicidal thoughts (remains somewhat ambivalent about being alive ), denies suicidal plan and denies suicidal intent Homicidal Thoughts: denies homicidal thoughts Hallucinations: no auditory hallucinations and no visual hallucinations Cognition: recent memory grossly intact, remote memory grossly intact, attention grossly intact and language grossly intact Estimated Intelligence: consistent with education level Insight: + limited insight Judgement: + limited judgement Vital Signs (Past 24 Hours) Last Vital Signs Temp 36.6 C 07/04/21 10:32 Pulse 88 07/04/21 10:32 Resp 18 07/04/21 10:32 BP 106/72 07/04/21 10:32 Pulse Ox 96 07/04/21 10:32 Results & Data ([facility]) Laboratory Results Laboratory Results - last 24 hr 07/04/21 07:24 ABG pH 7.45 ABG pCO2 35 ABG pO2 68 L ABG HCO3 24 ABG O2 Saturation 94.7 ABG Base Excess 0.9 Eriberto Test Pos Barometric Pressure 731.1 Oxygen Given RA Current Inpatient Medications Current Inpatient Medications: Current Inpatient Medications Albuterol (Albuterol Hfa 8 Gm Inhaler) 2 puffs INH Q4R PRN PRN Reason: Wheezing Stop: 07/29/21 22:59 Last Admin: 06/29/21 22:48 Dose: 2 puffs Documented by: Citalopram Hydrobromide (Citalopram 20 Mg Tab) 20 mg PO QAM [facility] Stop: 08/03/21 13:29 Fluticasone/Vilanterol (Fluticasone/Vilanterol 100/25mcg 14 Puffs/Inhaler) 1 puffs INH DAILY [place] Stop: 07/30/21 08:59 Last Admin: 07/04/21 07:55 Dose: 1 puffs Documented by: Gabapentin (Gabapentin 300 Mg Cap) 300 mg PO TID [place] Stop: 08/03/21 13:59 Olanzapine (Olanzapine 10 Mg/2.1 Ml Sdv) 5 mg IM BID PRN PRN Reason: Agitation Stop: 07/30/21 20:59 Olanzapine (Olanzapine Zydis 5 Mg Orally Dis. Tab) 5 mg PO BID PRN PRN Reason: Agitation Stop: 07/30/21 20:59 Prazosin HCl (Prazosin Hcl 1 Mg Cap) 1 mg PO HS [facility] Stop: 08/03/21 20:59
[2021-07-04] MEDS ORDERED: CITALOPRAM 20 MG TAB PO SCH (13:30)
[2021-07-04] MEDS ORDERED: GABAPENTIN 300 MG CAP PO SCH (14:00)
[2021-07-04] MEDS ORDERED: PRAZOSIN HCL 1 MG CAP PO SCH (21:00)
[2021-07-05 08:02] LABS: 7-Aminoclonaz, Confirm >2000 ng/mL (<25); Amphetamine Urine, Confirm 9290 ng/mL (<250); Hydro-Alp Ur, GC/MS NEGATIVE ng/mL (<25); Hydroxyethylflurazepam, Conf NEGATIVE ng/mL (<50); Hydroxymidazolam Ur, GC/MS NEGATIVE ng/mL (<50); Hydroxytriazolam NEGATIVE ng/mL (<50); Lorazepam, Ur GC/MS NEGATIVE ng/mL (<50); MDA negative; MDEA negative; MDMA (Ecstasy) Urine, Confirm negative; Marijuana Quant, GCMS Urine 210 ng/mL (<5); Methamphetamine, Ur Confirm >15000 ng/mL (<250); Nordiazepam, Confirm NEGATIVE ng/mL (<50); Oxazepam Ur, GC/MS NEGATIVE ng/mL (<50); Temazepam, Confirm NEGATIVE ng/mL (<50)
--- NOTE | 2021-07-05 08:36 | Discharge Summary ---
Date of Service July 04, 2021 Admission HPI Per Admitting Provider Patient is 45 y/o M with PMH seizure disorder, h/o TBI, asthma, depression presented to ER from the [facility] for reported unresponsive episode. History unobtainable from patient. It is reported patient self checked in yesterday for suicidal ideations. Reported thinks patient was "impaired" yesterday, however unable to further elaborate. Patient did not have a drug screen at the facility. Spoke to a nurse who was not immediately taking care of patient, however he did notice patient walking through [place] today and did notice him to seem to be nodding off a couple of times. Today patient was taking a shower and around 1500 was found on floor cyanotic, unresponsive and with reported pinpoint pupils. This nurse was unable to give me any further details about the event and reports no daytime staff available at this time. States that staff found pills in a bag and this nurse was unsure the number of pills in the bag and states the pills were not identified. Nurse reports that patient has bee n known to smuggle drugs in to other rehab facilities in past. No known seizure witnessed. Staff report patient stated last seizure was in 2019. ER provider reported that patient was given 2.8mg narcan intranasally as well as 1.2mg though IO prior to hospital arrival. Patient reported to [facility] staff that he was on albuterol, Celexa, prazosin, gabapentin, Klonopin, Remeron and did not give specific doses Upon review of recently Rx meds, filled at [facility] on 06/20/2021 citalopram 40 mg quantity 30, clonazepam 0.5 mg quantity 30, gabapentin 300 mg quantity 90, mirtazapine 30 mg quantity 30, prazosin 2 mg quantity 30 Upon ER arrival it is reported patient was had respirations of 6 to 8 breaths/min and O2 sat of 89% on room air, was given 0.8 mg of Narcan and reportedly woke up and was talking but was intelligible and had improvement of his respirations up to 16. Is reported patient had bradypnea again and was given additional Narcan with reporting becoming more responsive and opening his eyes to questioning. CT head no acute findings. unable to obtain further medical history, surgical history, social history, family history from patient at this time secondary to cognitive status Principal Diagnosis Drug overdose: Acute respiratory failure: Seizure disorder: Depression: Asthma: Discharge Exam Physical Exam: Lying in bed comfortably Constitutional: + ill appearing and + thin Eyes: PERRL, conjunctivae normal, anicteric sclerae ENMT: external ear and nose normal, oropharynx normal Neck: trachea midline, no thyromegaly Respiratory: no respiratory distress Auscultation: lungs clear to auscultation bilaterally Cardiovascular: Rate/Rhythm: regular rate and regular rhythm; not bradycardic Heart Sounds: normal S1 and normal S2; no murmur Extremities: no edema Gastrointestinal (Abdomen): Inspection/Auscultation: normal bowel sounds; abdomen not distended Percussion/Palpation: abdomen soft; abdomen nontender Neurologic: Alert awake and oriented x3. Has been sleeping a lot Discharge Data Allergies Allergy/AdvReac Type Severity Reaction Status Date / Time doxepin Allergy Unknown Unknown Verified 06/29/21 21:14 haloperidol Allergy Unknown Unknown Verified 06/29/21 21:14 mushroom Allergy Unknown PORTABELLA Verified 01/12/08 15:54 trazodone Allergy Unknown Unknown Verified 06/29/21 21:14 Consultations 06/29/21 18:26 ED Decision to Admit Stat 06/29/21 21:49 Consult Clam Shucker Routine 06/30/21 06:43 Consult Psychiatry Routine Ordered Studies 06/29/21 17:10 CT head/brain wo con Stat XR chest 2V PA/lateral HISTORY: 45 years-old Male SOB acute shortness of breath COMPARISON: Chest radiograph 06/29/2021 TECHNIQUE: PA and lateral views of the chest FINDINGS: The cardiomediastinal and hilar silhouettes are within normal limits. No pneumothorax, pleural effusion, airspace consolidation or overt pulmonary edema. 1.4 cm opacity of the lateral left lung base was not seen on prior study and likely correlates with sclerosis associated with a chronic posterolateral left 10th rib fracture. Healed chronic fracture of the adjacent left ninth rib. IMPRESSION: No acute process. ACT 112: Negative or not required by law. The above report was generated using voice recognition software. It may contain grammatical, syntax or spelling errors. Electronically signed by: Alton Kaminski M.D. 07/01/2021 10:24 AM Dictated:07/01/21 1021 Transcribed: 07/01/[address] head/brain wo con CLINICAL HISTORY: 45 years-old Male with AMS. Acutely altered mental status TECHNIQUE: Multiple axial CT images of the head were obtained without contrast. A dose lowering technique was utilized adhering to the principles of ALARA. CT DOSE: 1311.06 mGy.cm COMPARISON: Head CT 05/28/2008, 01/11/2008 FINDINGS: No acute intracranial hemorrhage, midline shift, intracranial mass, territorial ischemia or abnormal extra-axial collection. There is persistent dilation lateral ventricles measuring up to 4.1 cm transversely, stable back to at least 2007. Study is mildly motion degraded. The calvarium is intact. Mild mucosal thickening of the ethmoid air cells and frontal sinuses and mastoid air cells are clear. Unremarkable soft tissues and orbits. IMPRESSION: 1. No acute intracranial abnormality. 2. Unchanged ventricular prominence is stable dating back to at least 2007. ACT 112: Negative or not required by law. The above report was generated using voice recognition software. It may contain grammatical, syntax or spelling errors. Electronically signed by: Alton Kaminski M.D. 06/29/2021 5:59 PM Dictated:06/29/211755 Transcribed: 06/29/211755 XR chest 1V portable HISTORY: 45 years-old Male bradypnea acute shortness of breath COMPARISON: None TECHNIQUE: Portable AP view of the chest FINDINGS: Cardiomediastinal and hilar silhouettes are within normal limits. No pneumothorax, pleural effusion, airspace consolidation or overt pulmonary edema. Bones of the chest appear grossly intact. Partially imaged surgical anchor projects over the proximal left humerus. IMPRESSION: No acute process. ACT 112: Negative or not required by law. The above report was generated using voice recognition software. It may contain grammatical, syntax or spelling errors. Electronically signed by: Alton Kaminski M.D. 06/29/2021 5:21 PM Dictated:06/29/210 Transcribed: 06/29/211719 Hospital Course (1) Drug overdose: Rx meds filled at [facility] on 06/20/2021 citalopram 40 mg quantity 30, clonazepam 0.5 mg quantity 30, gabapentin 300 mg quantity 90, mirtazapine 30 mg quantity 30, prazosin 2 mg quantity 30 Suspect overdose with multiple medications -possible opioid and benzodiazepines. Ecstasy, amphetamine and marijuana Could be suicidal ideation but the patient denies this morning during my examination Doubt any post ictal state Urine tox screen is positive for marijuana, benzodiazepines, amphetamine and ecstasy Noted to be very drowsy on admission and required repeated doses of Narcan Remain in ICU-appreciate stogy roller input and recommendation Remained on one-to-one sitter and suicide precaution Appreciate psychiatric input and recommendation Has been given Zyprexa and will monitor QTC Will need to go to inpatient psych unit Not allowed to sign out AMA as per the psychiatrist Has been sleeping throughout the whole day parathyroids alert awake and oriented Saturating normally on room air and passed it to a stable O2 saturation test Remains on one-to-one sitter without any agitation PO psych med resume as per psych team Medically stable awaiting transfer to [facility] Pt cannot sign AMA (2) Acute respiratory failure: Patient is 45 y/o M with PMH seizure disorder, h/o TBI, asthma, depression presented to ER from the [facility] for reported unresponsive episode. It is reported patient self checked in yesterday for suicidal ideations and was noted to have episodes of "nodding off" throughout the day. Today around 15:00 found in shower cyanotic, unresponsive and with reported pinpoint pupils. It isreported that patient was given 2.8mg narcan intranasally as well as 1.2mg though IO prior to hospital arrival. Pills were found in a bag of patient's possession. Upon ER arrival it is reported patient was had respirations of 6 to 8 breaths/min and O2 sat of 89% on room air, was given 0.8 mg of Narcan and reportedly woke up and was talking but was intelligible and had improvement of his respirations up to 16. Is reported patient had bradypnea again and was g iven additional Narcan with reporting becoming more responsive and opening his eyes to questioning. CT head no acute findings. CXR: no acute findings ABG: pH: 7.34, pCO2: 55, pO2: 178, HCO3: 28, was obtained on 6L oxygen. Negative ETOH, acetaminophen, salicylate levels Has been feeling much better though remains drowsy and a little incoherent Can come out from ICU ABG that was drawn this morning showed pH 7.40, PCO2 51, PO2 63, bicarb 30 and base excess 4.3-was not accepted to [facility] with this set of blood gas He has been saturating normally on room air We will get repeat ABG in the morning-O2 only 60 Nocturnal pulse oximetry has been unremarkable (3) Seizure disorder: Reported history seizure disorder and reported last seizure in 2019 Lower suspicion for acute seizure and postictal status however if would pt would no improve in status from above or declines, pt will require transfer for continuous EMG monitoring Has not been taking any antiseizure medication (4) Depression: Pharmacy record review patient is to be on citalopram, clonazepam and gabapetin Follow up with psych (5) Asthma: Albuterol prn Breo was started as per pulm No acute exacerbation Disposition Follows with [facility] in [place] for routine care Likely transfer to [facility] today Total Time Total Time Spent Total Time Spent (In Minutes): 35 minutes Discharge Plan Discharge Items Patient Disposition: Transfer Behavioral Health Fac Reason For Visit: UNRESPONSIVE Discharge Diagnosis: Drug overdose: Acute respiratory failure: Seizure disorder: Depression: Asthma: Activity: Resume your previous activity Non-emergency contact: Primary Care Provider and Psychiatrist Call non-emergency contact if: you have any medication questions Follow-up/Referrals: Belinda Cervantes [Primary Care Provider] - Diet: Regular Addtl Attending Provider Instructions: Will transfer to the [facility] for inpatient psychiatry treatment Follow up with your primary care provider once discharge from the [facility] Continue monitor closely for sign of suicidal Pending Studies at Discharge: No Stand-Alone Forms: [facility] Medications and DC Order Prescriptions: New Breo Ellipta 100-25 mcg/dose Blister With Device 1 ea inhalation DAILY 30 Days Qty: 30 RF: 0 Continued mirtazapine 30 mg tablet 30 mg PO DAILY RF: 0 gabapentin 300 mg capsule 300 mg PO TID RF: 0 albuterol sulfate 90 mcg/actuation HFA aerosol inhaler 2 puff INHALATION QID PRN (Reason: Wheezing) RF: 0 prazosin 2 mg capsule 2 mg PO DAILY RF: 0 Changed citalopram 40 mg tablet 20 mg PO DAILY Qty: 0 RF: 0 Discontinued clonazepam 0.5 mg tablet 0.5 mg PO DAILY RF: 0 Discharge Orders: Discharge Order (Routine); Ordered 07/04/21 Ordered By: Jame Nowak Admission Data Admit Date/Time: 06/29/21 20:24 Attending Provider: Jame Nowak Admit Provider: Tim Gamboa Primary Care Provider: Belinda Cervantes Other Providers: Tim Gamboa ; Akil Culp ; Gisela Pemberton ; Nishi Garcia ; Margo Adan ; Domingo Mckenna ; Mireya Montenegro Other Interventions: Discharge Summary Assessment (RN) Last Done: 07/04/21 18:48
== END 2021-07-04 19:30 | DRG 917 ==
LOC: ED 16:38 → INTOOBSV 20:24 → SUATTDRO 20:24 → 1E 20:24 → 2W 06-30 16:06